=== PATIENT | female | born 1960 | race Caucasian/White ===

== ENCOUNTER 2016-09-25 12:45 | Emergency (ER) | payer MEDICARE, OTHER ==
--- NOTE | 2016-09-25 13:28 | ED ---
General Adult HPI - General Chief complaint: Urogenital Stated complaint: Female Source: patient, RN notes reviewed Mode of arrival: ambulatory Limitations: no limitations - History of Present Illness Initial comments: Chief complaint and history of present illness this is a 56-year-old female complaint of frequency urgency and dysuria for the past 24 hours. Patient reports she does a few drops of blood with her urine she has to go urgently occasionally only a few drops come out. Suprapubic discomfort. No chills no fever no flank pain. No complaints of any nausea. The patient has had history of UTIs in the past. - Related Data Home Medications Medication Instructions Recorded Confirmed Alendronate Sodium [Alendronate 70 mg PO Q7DAYS 01/01/16 09/25/16 Sodium] Atomoxetine HCl [Strattera] 80 mg PO DAILY 01/01/16 09/25/16 FLUoxetine HCL [FLUoxetine HCL] 40 mg PO DAILY 01/01/16 09/25/16 Lisinopril [Lisinopril] 5 mg PO DAILY 01/01/16 09/25/16 [place] Carbonate [[place] 150 mg PO BID 01/01/16 09/25/16 Carbonate] Meloxicam [Meloxicam] 15 mg PO DAILY 01/01/16 09/25/16 Mirtazapine [Mirtazapine] 15 mg PO HS 01/01/16 09/25/16 Previous Rx's Medication Instructions Recorded Hydrocodone/Acetaminophen [[place] 1 each PO Q6HR PRN #5 tab 01/01/16 5-325] Phenazopyridine [Pyridium] 200 mg PO TID #6 tablet 09/25/16 Phenazopyridine [Pyridium] 200 mg PO TID #6 tablet 09/25/16 Sulfamethox-Tmp 800-160Mg [Bactrim 1 each PO Q12HR #20 tab 09/25/16 DS 800-160 mg] Allergies Allergy/AdvReac Type Severity Reaction Status Date / Time No Known Allergies Allergy Verified 09/25/16 12:51 Review of Systems ROS Statement: Those systems with pertinent positive or pertinent negative responses have been documented in the HPI. Review of systems no complaint of headache or sore throat no chest pain or shortness of breath no intestinal problems problems include frequency urgency and dysuria. No neuro deficits complained of. All systems are reviewed. Past medical problems significant for angina, hyperlipidemia, hypertension, osteoarthritis, migraines, emphysema. The patient's surgeries include appendectomy, , tonsillectomy and tubal ligation. The patient' s a smoker strongly encouraged to stop denies alcohol use. ROS Other: All systems not noted in ROS Statement are negative. Past Medical History Past Medical History: Chest Pain / Angina, Hyperlipidemia, Hypertension, Osteoarthritis (OA) Additional Past Medical History / Comment(s): migraines, emphysema, chronic bronchitis History of Any Multi-Drug Resistant Organisms: None Reported Past Surgical History: Appendectomy, Section, Tonsillectomy, Tubal Ligation Past Anesthesia/Blood Transfusion Reactions: No Reported Reaction Past Psychological History: Anxiety, Bipolar, Depression Smoking Status: Current every day smoker Past Alcohol Use History: None Reported Past Drug Use History: None Reported - Past Family History Father Family Medical History: Cancer General Exam - General Exam Comments Initial Comments: General: The patient is awake and alert, in no distress, and does not appear acutely ill. Complaining of frequency urgency and dysuria Eye: Pupils are equal, round and reactive to light, extra-ocular movements are intact ; there is normal conjunctiva bilaterally. No signs of icterus. Ears, nose, mouth and throat: There are moist mucous membranes and no oral lesions. Neck: The neck is supple, there is no tenderness , no anterior cervical lymphadenopathy. Cardiovascular: There is a regular rate and rhythm. No murmur, rub or gallop is appreciated. Respiratory: Lungs are clear to auscultation, respirations are non-labored, breath sounds are equal. No wheezes, stridor, rales, or rhonchi. Gastrointestinal: Complains of suprapubic discomfort with urinating but not with palpation. No organomegaly. Back: There is no tenderness to palpation in the midline. There is no obvious deformity. No rashes noted. Musculoskeletal: Normal ROM, no tenderness, There is no pedal edema. There is no calf tenderness or swelling. Sensation intact. Pulses equal bilaterally 2+. Neurological: No gross neuro deficits Skin: Patient has multiple lesions where she is picked and scratch. She states it caused by mosquito bites last week while camping. Limitations: no limitations Course Vital Signs 09/25/16 12:48 Temperature 98.5 F Pulse Rate 99 Respiratory 18 Rate Blood Pressure 173/78 O2 Sat by Pulse 98 Oximetry Medical Decision Making - Lab Data Lab Results 09/25/16 Range/Units 13:36 Urine Color Light Yellow Urine Appearance Cloudy H (Clear) Urine pH 5.5 (5.0-8.0) Ur Specific [place] 1.007 (1.001-1.035) Urine Protein Trace H (Negative) Urine Glucose (UA) Negative (Negative) Urine Ketones Negative (Negative) Urine Blood Large H (Negative) Urine Nitrite Positive H (Negative) Urine Bilirubin Negative (Negative) Urine Urobilinogen <2.0 (<2.0) mg/dL Ur Leukocyte Esterase Moderate H (Negative) Urine RBC 2 (0-5) /hpf Urine WBC 30 H (0-5) /hpf Ur Squamous Epith Cells <1 (0-4) /hpf Urine Bacteria Occasional H (None) /hpf Urine Mucus Rare H (None) /hpf Disposition Clinical Impression: Urinary tract infection Disposition: HOME SELF-CARE Condition: Fair Instructions: Urinary Tract Infection in Women (ED) Prescriptions: Phenazopyridine [Pyridium] 200 mg PO TID #6 tablet Phenazopyridine [Pyridium] 200 mg PO TID #6 tablet Sulfamethox-Tmp 800-160Mg [Bactrim DS 800-160 mg] 1 each PO Q12HR #20 tab Referrals: Lucio Grimm DO [Primary Care Provider] - 1-2 days Time of Disposition: 14:55
[2016-09-25 13:50] LABS: Appearance,Urine Cloudy (Clear); Bacteria,Urine Occasional /hpf; Bilirubin,Urine Negative (Negative); Glucose,Urine (UA) Negative (Negative); Ketones,Urine Negative (Negative); Leukocyte Esterase,Urine Moderate (Negative); Mucus,Urine Rare /hpf; Nitrite,Urine Positive (Negative); PH, Urine 5.5 (5.0-8.0); Particle Count 4294; Protein,Urine Trace (Negative); RBC,Urine 2 /hpf (0-5); Specific Gravity,Urine 1.007 (1.001-1.035); Squamous Epithelial Cell,Urine <1 /hpf (0-4); UA Billing (MACRO vs. MICRO) MICRO; Urobilinogen,Urine <2.0 mg/dL (<2.0); WBC,Urine 30 /hpf (0-5)
[2016-09-25] MEDS ORDERED: SULFAMETH-TMP DS STARTER PACK 2 TAB BTL PO STA (14:52)
[2016-09-25] MEDS ORDERED: PHENAZOPYRIDINE 200 MG TAB PO STA (14:52)
[2016-09-25 15:08] VITALS: BP 140/68; PULSE 83; RESP 20; TEMP 97
== END 2016-09-25 15:07 | disposition home or self-care (01) ==
LOC: EC 12:45
DX: N39.0 Urinary tract infection, site not specified (principal); R10.9 Unspecified abdominal pain; M19.90 Unspecified osteoarthritis, unspecified site; E78.5 Hyperlipidemia, unspecified; I10 Essential (primary) hypertension; F31.9 Bipolar disorder, unspecified; F41.9 Anxiety disorder, unspecified; F17.200 Nicotine dependence, unspecified, uncomplicated; Z79.1 Long term (current) use of non-steroidal anti-inflammatories (NSAID); Z79.899 Other long term (current) drug therapy; Z98.890 Other specified postprocedural states; Z98.51 Tubal ligation status
CPT/HCPCS: 81001; 87077; 87086; 87186; 99283

== ENCOUNTER 2016-10-15 12:35 | Emergency (ER) | payer MEDICARE, OTHER ==
[2016-10-15 13:01] VITALS: RESP 16
[2016-10-15 13:33] LABS: Appearance,Urine Clear (Clear); Bilirubin,Urine Negative (Negative); Glucose,Urine (UA) Negative (Negative); Ketones,Urine Negative (Negative); Leukocyte Esterase,Urine Negative (Negative); Nitrite,Urine Negative (Negative); PH, Urine 6.5 (5.0-8.0); Protein,Urine Negative (Negative); Specific Gravity,Urine 1.013 (1.001-1.035); UA Billing (MACRO vs. MICRO) CHEM; Urobilinogen,Urine <2.0 mg/dL (<2.0)
--- NOTE | 2016-10-15 14:11 | ED ---
General Adult HPI - General Chief complaint: Back Pain/Injury Stated complaint: Back Pain Time Seen by Provider: 10/15/16 13:07 Source: patient, RN notes reviewed Mode of arrival: ambulatory Limitations: no limitations - History of Present Illness Initial comments: 56-year-old female who presents emergency room today with chief complaint of increased lower back pain. She does admit that it's worse when she coughs or certain movements. Does admit when she is walking that she feels pain in her lower back. Denies any radiation. Denies any lumbar radiculopathy. Denies any saddle anesthesia. Denies any injury or trauma. Patient denies any recent fever, chills, shortness of breath, chest pain, abdominal pain, nausea or vomiting, numbness or tingling, dysuria or hematuria, constipation or diarrhea, headaches or visual changes, or any other complaints. - Related Data Home Medications Medication Instructions Recorded Confirmed Alendronate Sodium [Alendronate 70 mg PO Q7DAYS 01/01/16 10/15/16 Sodium] Atomoxetine HCl [Strattera] 80 mg PO DAILY 01/01/16 10/15/16 Lisinopril [Lisinopril] 5 mg PO DAILY 01/01/16 10/15/16 [place] Carbonate [[place] 150 mg PO QAM 01/01/16 10/15/16 Carbonate] Meloxicam [Meloxicam] 15 mg PO DAILY 01/01/16 10/15/16 Mirtazapine [Mirtazapine] 15 mg PO HS 01/01/16 10/15/16 Albuterol Sulfate [Proair Hfa] 1 - 2 puff INHALATION RT-Q6H PRN 10/15/16 Calcium Carbonate/Vitamin D3 1 tab PO DAILY 10/15/16 10/15/16 [Calcium 500-Vit D3 600 Tablet] Cholecalciferol [Vitamin D3] 1,000 unit PO DAILY 10/15/16 10/15/16 FLUoxetine HCL [PROzac] 20 mg PO DAILY 10/15/16 10/15/16 [place] Carbonate 300 mg PO HS 10/15/16 10/15/16 Tiotropium 18 Mcg/Puff [Spiriva] 1 cap INHALATION RT-DAILY 10/15/16 10/15/16 Previous Rx's Medication Instructions Recorded Ibuprofen [Motrin] 600 mg PO Q6HR PRN #20 day 10/15/16 Allergies Allergy/AdvReac Type Severity Reaction Status Date / Time No Known Allergies Allergy Verified 10/15/16 13:55 Review of Systems ROS Statement: Those systems with pertinent positive or pertinent negative responses have been documented in the HPI. ROS Other: All systems not noted in ROS Statement are negative. Past Medical History Past Medical History: Chest Pain / Angina, Hyperlipidemia, Hypertension, Osteoarthritis (OA) Additional Past Medical History / Comment(s): migraines, emphysema, chronic bronchitis History of Any Multi-Drug Resistant Organisms: None Reported Past Surgical History: Appendectomy, Section, Tonsillectomy, Tubal Ligation Past Anesthesia/Blood Transfusion Reactions: No Reported Reaction Past Psychological History: Anxiety, Bipolar, Depression Smoking Status: Current every day smoker Past Alcohol Use History: None Reported Past Drug Use History: None Reported - Past Family History Father Family Medical History: Cancer General Exam - General Exam Comments Initial Comments: General: The patient is awake and alert, in no distress, and does not appear acutely ill. Eye: Pupils are equal, round and reactive to light, extra-ocular movements are intact. No nystagmus. There is normal conjunctiva bilaterally. No signs of icterus. Ears, nose, mouth and throat: There are moist mucous membranes and no oral lesions. Neck: The neck is supple, there is no tenderness or JVD. Cardiovascular: There is a regular rate and rhythm. No murmur, rub or gallop is appreciated. Respiratory: Lungs are clear to auscultation, respirations are non-labored, breath sounds are equal. No wheezes, stridor, rales, or rhonchi. Gastrointestinal: Soft, non-distended, non-tender abdomen without masses or organomegaly noted. There is no rebound or guarding present. No CVA tenderness. Bowel sounds are unremarkable. Musculoskeletal: Normal ROM. Patient has normal appearance of thoracic and lumbar spine. No step-offs forms appreciated. No tenderness midline. Paravertebral tenderness on the right on palpation. Strength 5/5. Sensation intact. Pulses equal bilaterally 2+. Neurological: A&O x 3. CN II-XII intact, There are no obvious motor or sensory deficits. Coordination appears grossly intact. Speech is normal. Skin: Skin is warm and dry and no rashes or lesions are noted. Psychiatric: Cooperative, appropriate mood & affect, normal judgment. Limitations: no limitations Course Vital Signs 10/15/16 10/15/16 12:49 12:56 Temperature 97.1 F L Pulse Rate 95 93 Respiratory 18 16 Rate Blood Pressure 164/72 140/60 O2 Sat by Pulse 98 97 Oximetry Medical Decision Making - Medical Decision Making Patient pain is reproduced on palpation. She does admit that is worse with certain movements. Her urinalysis is negative for any sign of infection. Patient's vitals are stable here in the emergency room. At this time advised patient that symptoms are consistent with muscular skeletal pain. Denies trying to explain this to the patient she received a phone call and began to talk on the phone. Patient will be treated with ibuprofen advised follow-up the family doctor over the next 2 days return if any symptoms increase or worsen. - Lab Data Lab Results 10/15/16 Range/Units 12:35 Urine Color Yellow Urine Appearance Clear (Clear) Urine pH 6.5 (5.0-8.0) Ur Specific [place] 1.013 (1.001-1.035) Urine Protein Negative (Negative) Urine Glucose (UA) Negative (Negative) Urine Ketones Negative (Negative) Urine Blood Negative (Negative) Urine Nitrite Negative (Negative) Urine Bilirubin Negative (Negative) Urine Urobilinogen <2.0 (<2.0) mg/dL Ur Leukocyte Esterase Negative (Negative) Disposition Clinical Impression: Acute low back pain Disposition: HOME SELF-CARE Condition: Good Instructions: Acute Low Back Pain (ED) Additional Instructions: Please use medication as discussed. Please follow-up with family doctor in the next 2 days of symptoms have not improved. Please return to emergency room if the symptoms increase or worsen or for any other concerns. Prescriptions: Ibuprofen [Motrin] 600 mg PO Q6HR PRN #20 day PRN Reason: Pain Referrals: Lucio Grimm DO [Primary Care Provider] - 1-2 days Time of Disposition: 14:11
[2016-10-15 14:19] VITALS: BP 141/65; PULSE 68; TEMP 98
== END 2016-10-15 14:19 | disposition home or self-care (01) ==
LOC: EC 12:35
DX: M54.5 Low back pain (principal); I10 Essential (primary) hypertension; F31.9 Bipolar disorder, unspecified; J43.9 Emphysema, unspecified; F17.200 Nicotine dependence, unspecified, uncomplicated; Z79.1 Long term (current) use of non-steroidal anti-inflammatories (NSAID); Z79.899 Other long term (current) drug therapy
CPT/HCPCS: 81003; 87086; 99283

== ENCOUNTER → 2018-04-03 | Outpatient (CLI) | payer MEDICARE, OTHER ==
[2018-04-03 16:30] LABS: Basophils # (A) 0.1 k/uL (0-0.2); Basophils % (A) 1 %; Eosinophils # (A) 0.1 k/uL (0-0.7); Eosinophils % (A) 1 %; HCT 40.3 % (34.0-46.0); HGB 13.3 gm/dL (11.4-16.0); Lymphocytes # (A) 2.6 k/uL (1.0-4.8); Lymphocytes % (A) 29 %; MCH 31.7 pg (25.0-35.0); MCV 96.2 fL (80.0-100.0); Mean Platelet Volume 8.2; Monocytes # (A) 0.4 k/uL (0-1.0); Monocytes % (A) 5 %; Neutrophils # (A) 5.6 k/uL (1.3-7.7); Neutrophils % (A) 62 %; Platelet Count 314 k/uL (150-450); RBC 4.19 m/uL (3.80-5.40); RDW 13.4 % (11.5-15.5)
[2018-04-04 03:52] LABS: Lithium <0.1 mmol/L (1.0-1.2)
== END | disposition home or self-care (01) ==
LOC: LABWHC1 14:52
PROVIDERS: ATTEND Nurse Practitioner Family
DX: Z51.81 Encounter for therapeutic drug level monitoring (principal); Z79.899 Other long term (current) drug therapy
CPT/HCPCS: 36415; 80178; 82565; 84439; 84443; 84520; 85025

== ENCOUNTER → 2018-06-13 | Outpatient (CLI) | payer MEDICARE, OTHER ==
--- NOTE | 2018-06-13 08:51 | BD ---
EXAMINATION TYPE: Axial Bone Density DATE OF EXAM: 06/13/2018 COMPARISON: DEXA bone scan 2015 CLINICAL HISTORY: Postmenopausal female Height: 4 FT 7 1/2 IN Weight: 113 FRAX RISK QUESTIONS: History of Fracture in Adulthood: YES Secondary Osteoporosis: 3. Menopause before 45: YES Current Tobacco Use: YES RISK FACTORS HISTORY OF: Active: YES Postmenopausal woman: AGE 35 Lost more than 2 inches in height since high school: YES MEDICATIONS: Prednisone or other steroids: WAS ON INHALER FOR ASTHMA HAS NOT TAKEN FOR LAST 6 MONTHS Osteoporosis Medications: YES Which medication: ALENDRONATE SODIUM How Lon MONTHS Additional Medications: ALENDRONATE SODIUM, ATORVASTATIN, BISACODYL, LISINOPRIL, MELOXICAM Additional History: EXAM MEASUREMENTS: Bone mineral densitometry was performed using the [employer] System. Bone mineral density as measured about the Lumbar spine is: ----- L1-L4(G/cm2): 0.986 T Score Values are as follows: ----- L2: -1.7 ----- L3: -1.5 ----- L4: -1.6 ----- L1-L4: -1.6 Bone mineral density has: INCREASED 7.0 % since study of: 2016 Bone mineral density about the R hip (g/cm2): 0.653 Bone mineral density about the L hip (g/cm2): 0.684 T Score values are as follows: -----R Neck: -2.8 -----L Neck: -2.5 -----R Total: -2.4 -----L Total: -1.6 Bone mineral density has: INCREASED 2.5 % since study of: 2016 IMPRESSION: Osteoporosis (T Score less than -2.5) remains present femoral neck level right hip. There remains increased fracture risk and therapy is usually indicated based on age. Re-Screen 1-2 years. NOTE: T-SCORE=SD OF THE YOUNG ADULT MEAN.
== END | disposition home or self-care (01) ==
LOC: RADBDWWP 07:59
PROVIDERS: ATTEND Family Medicine
DX: M81.0 Age-related osteoporosis without current pathological fracture (principal)
CPT/HCPCS: 77080

== ENCOUNTER 2018-06-14 10:55 | Day surgery (SDC) | payer MEDICARE, OTHER ==
[2018-06-12 11:22] VITALS: BMI 24.8
--- NOTE | 2018-06-14 09:53 | P.GSHP ---
History of Present Illness H&P Date: 06/14/18 CHIEF COMPLAINT: Colon screen HISTORY OF PRESENT ILLNESS: The patient is a 58-year-old female who presents for colon screen. Lower endoscopy was offered for further evaluation and management. PAST MEDICAL HISTORY: Please see list. PAST SURGICAL HISTORY: Please see list. MEDICATIONS: Please see list. ALLERGIES: Please see list. SOCIAL HISTORY: No illicit drug use FAMILY HISTORY: No reports of Crohn disease or ulcerative colitis. REVIEW OF ORGAN SYSTEMS: CONSTITUTIONAL: No reports of fevers or chills. PHYSICAL EXAM: VITAL SIGNS: Stable GENERAL: Well-developed pleasant in no acute distress. HEENT: No scleral icterus. Extraocular movements grossly intact. Moist buccal mucosa. NECK: Supple without lymphadenopathy. CHEST: Unlabored respirations. Equal bilateral excursions. CARDIOVASCULAR: Regular rate and rhythm. Distal 2+ pulses. ABDOMEN: Soft, nontender, nondistended. MUSCULOSKELETAL: No clubbing, cyanosis, or edema. ASSESSMENT: 1. Colon screen. PLAN: 1. Recommend proceeding with a lower endoscopy Past Medical History Past Medical History: Chest Pain / Angina, Hyperlipidemia, Hypertension, Memory Impairment, Osteoarthritis (OA) Additional Past Medical History / Comment(s): migraines, emphysema, chronic bronchitis, osteoporosis History of Any Multi-Drug Resistant Organisms: None Reported Past Surgical History: Appendectomy, Section, Tonsillectomy, Tubal Ligation Past Anesthesia/Blood Transfusion Reactions: No Reported Reaction Smoking Status: Current every day smoker - Past Family History Father Family Medical History: Cancer Medications and Allergies Home Medications Medication Instructions Recorded Confirmed Type Alendronate Sodium 70 mg PO MO 01/01/16 06/12/18 History Atomoxetine HCl [Strattera] 80 mg PO DAILY 01/01/16 06/12/18 History Lisinopril 5 mg PO DAILY 01/01/16 06/12/18 History [place] Carbonate 450 mg PO HS 01/01/16 06/12/18 History Meloxicam 15 mg PO DAILY 01/01/16 06/12/18 History Mirtazapine 15 mg PO HS 01/01/16 06/12/18 History Albuterol Sulfate [Proair Hfa] 1 - 2 puff INHALATION RT-Q6H PRN 10/15/16 History FLUoxetine HCL [PROzac] 20 mg PO DAILY 10/15/16 06/12/18 History Ibuprofen [Motrin] 600 mg PO Q6HR PRN #20 day 10/15/16 06/12/18 Rx Tiotropium 18 Mcg/Puff [Spiriva] 1 cap INHALATION RT-DAILY 10/15/16 06/12/18 History Atorvastatin [Lipitor] 20 mg PO DAILY 06/12/18 06/12/18 History Ergocalciferol [Vitamin D2 50,000 units PO Q30D 06/12/18 06/12/18 History (FERMIN)] Allergies Allergy/AdvReac Type Severity Reaction Status Date / Time No Known Allergies Allergy Verified 06/12/18 11:12
[~2018-06-14 10:55] MED LIST: LACTATED RINGERS 1,000 ML IV SCH; LIDOCAINE 1% 20 ML VIAL (10MG/ML) FOR IV START INTRADERMA PRN
[2018-06-14 11:39] VITALS: RESP 16; TEMP 98.6
[2018-06-14] MEDS ORDERED: LIDOCAINE 1% INJ 10MG/ML (20 ML MDV) ONE (12:29)
[2018-06-14] MEDS ORDERED: PROPOFOL 10 MG/ML 20 ML VIAL IV ONE (12:29)
--- NOTE | 2018-06-14 12:51 | P.PCN ---
Date of Procedure: 06/14/18 Description of Procedure: PREOPERATIVE DIAGNOSIS: Colonoscopy screening, first POSTOPERATIVE DIAGNOSIS: Colonoscopy screening, first Very poor colon prep OPERATION: Colonoscopy to the ileocecal valve and appendiceal orifice. SURGEON: Keke Don MD. ANESTHESIA: MAC. INDICATIONS: The patient is a 58-year-old female who presents for her first colonoscopy screening. Benefits and risks were described and informed consent was obtained. DESCRIPTION OF PROCEDURE: The patient had undergone Gatorade, MiraLAX and Dulcolax prep. She had been brought into the operating room and laid in the left lateral decubitus position. After adequate intravenous sedation, the rectum was examined with 2% lidocaine jelly. No external hemorrhoids were encountered. The rectal tone was within normal limits. No lesions were palpated in the rectal vault. An Olympus colonoscope was advanced until the ileocecal valve and appendiceal orifice were clearly viewed. The prep was very poor limiting complete views of the mucosal taylor. No scattered diverticulosis was encountered. No colonic polyps were found. No evidence of focal colitis was found. Retroflexion of the scope demonstrated no internal hemorrhoids. The colon was desufflated. The patient had tolerated the procedure well. Withdrawal time was over 6 minutes. FINDINGS: Very poor colonic prep No internal hemorrhoids No external prolapsed hemorrhoids. No arteriovenous malformations. No adenomatous polyps. No focal colitis. RECOMMENDATIONS: Lower endoscopy in 5 years, 2023 for increased familial risk Plan - Discharge Summary Discharge Rx Participant: No New Discharge Prescriptions: No Action Alendronate Sodium 70 mg PO MO [place] Carbonate 450 mg PO HS Lisinopril 5 mg PO DAILY Atomoxetine HCl [Strattera] 80 mg PO DAILY Mirtazapine 15 mg PO HS Meloxicam 15 mg PO DAILY Tiotropium 18 Mcg/Puff [Spiriva] 1 cap INHALATION RT-DAILY Albuterol Sulfate [Proair Hfa] 1 - 2 puff INHALATION RT-Q6H PRN PRN Reason: Shortness Of Breath FLUoxetine HCL [PROzac] 20 mg PO DAILY Ibuprofen [Motrin] 600 mg PO Q6HR PRN #20 day PRN Reason: Pain Atorvastatin [Lipitor] 20 mg PO DAILY Ergocalciferol [Vitamin D2 (DRISDOL)] 50,000 units PO Q30D Discharge Medication List Alendronate Sodium 70 mg PO MO 01/01/16 [History] Atomoxetine HCl [Strattera] 80 mg PO DAILY 01/01/16 [History] Lisinopril 5 mg PO DAILY 01/01/16 [History] [place] Carbonate 450 mg PO HS 01/01/16 [History] Meloxicam 15 mg PO DAILY 01/01/16 [History] Mirtazapine 15 mg PO HS 01/01/16 [History] Albuterol Sulfate [Proair Hfa] 1 - 2 puff INHALATION RT-Q6H PRN 10/15/16 [ History] FLUoxetine HCL [PROzac] 20 mg PO DAILY 10/15/16 [History] Ibuprofen [Motrin] 600 mg PO Q6HR PRN #20 day 10/15/16 [Rx] Tiotropium 18 Mcg/Puff [Spiriva] 1 cap INHALATION RT-DAILY 10/15/16 [History] Atorvastatin [Lipitor] 20 mg PO DAILY 06/12/18 [History] Ergocalciferol [Vitamin D2 (DRISDOL)] 50,000 units PO Q30D 06/12/18 [History] Follow up Appointment(s)/Referral(s): Keke Don MD [STAFF PHYSICIAN] - 1 Week Patient Instructions/Handouts: Colonoscopy (DC) Activity/Diet/Wound Care/Special Instructions: Repeat colonoscopy in 5 years, 2023 Discharge Disposition: HOME SELF-CARE
[2018-06-14 13:14] VITALS: BP 129/75; PULSE 70
== END 2018-06-14 13:29 | disposition home or self-care (01) ==
LOC: ORWHC2ENDO 10:55
PROVIDERS: ATTEND Surgery Plastic and Reconstructive Surgery
DX: Z12.11 Encounter for screening for malignant neoplasm of colon (principal); I10 Essential (primary) hypertension; E78.5 Hyperlipidemia, unspecified; M81.0 Age-related osteoporosis without current pathological fracture; R41.3 Other amnesia; I20.9 Angina pectoris, unspecified; G43.909 Migraine, unspecified, not intractable, without status migrainosus; J42 Unspecified chronic bronchitis; J43.9 Emphysema, unspecified; F17.210 Nicotine dependence, cigarettes, uncomplicated; F32.9 Major depressive disorder, single episode, unspecified; Z79.899 Other long term (current) drug therapy
CPT/HCPCS: J2001; J2704; G0121; 45378

== ENCOUNTER → 2018-07-03 | Outpatient (CLI) | payer MEDICARE, OTHER ==
--- NOTE | 2018-07-05 09:11 | MM ---
Reason for exam: screening (asymptomatic). Last mammogram was performed 4 years ago. History: Patient is postmenopausal. Physical Findings: A clinical breast exam by your physician is recommended on an annual basis and results should be correlated with mammographic findings. MG 3D Screening Mammo W/Cad Bilateral CC, MLO, and XCCL view(s) were taken. Prior study comparison: July 03, 2014, bilateral MG screening mammo w CAD. The breast tissue is heterogeneously dense. This may lower the sensitivity of mammography. No significant changes when compared with prior studies. ASSESSMENT: Negative, BI-RAD 1 RECOMMENDATION: Routine screening mammogram of both breasts in 1 year.
== END | disposition home or self-care (01) ==
LOC: RADMAMWWP 12:30
PROVIDERS: ATTEND Family Medicine
DX: Z12.31 Encounter for screening mammogram for malignant neoplasm of breast (principal)
CPT/HCPCS: 77063; 77067

== ENCOUNTER → 2019-02-12 | Outpatient (CLI) | payer MEDICARE, OTHER ==
[2019-02-12 10:51] LABS: Basophils # (A) 0.1 k/uL (0-0.2); Basophils % (A) 1 %; Eosinophils # (A) 0.1 k/uL (0-0.7); Eosinophils % (A) 1 %; HCT 44.2 % (34.0-46.0); Lymphocytes # (A) 2.4 k/uL (1.0-4.8); Lymphocytes % (A) 29 %; MCHC 31.7 g/dL (31.0-37.0); MCV 98.1 fL (80.0-100.0); Monocytes # (A) 0.3 k/uL (0-1.0); Monocytes % (A) 4 %; Neutrophils # (A) 5.4 k/uL (1.3-7.7); Neutrophils % (A) 63 %; Platelet Count 308 k/uL (150-450); RBC 4.51 m/uL (3.80-5.40); RDW 12.9 % (11.5-15.5); WBC 8.5 k/uL (3.8-10.6)
[2019-02-12 17:55] LABS: ALT 24 U/L (8-44); AST 25 U/L (13-35); African American GFR (CKD) 93.5 (60.0-200.0); Alkaline Phosphatase 42 U/L (41-126); Bilirubin, Conjugated <0.20 mg/dL (0.20-0.40); Carbon Dioxide 26.9 mmol/L (21.6-31.8); Chloride 103 mmol/L (96-109); Chol/HDL Ratio 6.47; Cholesterol 304 mg/dL (0-200); Glucose 112 mg/dL (70-110); LDL Cholesterol,Calculated 149.4 mg/dL (0.0-131.0); Lithium 0.5 mmol/L (0.5-1.2); Potassium 5.1 mmol/L (3.5-5.5); Sodium 136 mmol/L (135-145); Total Bilirubin 0.5 mg/dL (0.3-1.2)
[2019-02-12 20:05] LABS: Hemoglobin A1C 5.9 % (4.0-6.0)
== END ==
LOC: LABWHC1 09:46
PROVIDERS: ATTEND Nurse Practitioner Family
DX: Z51.81 Encounter for therapeutic drug level monitoring (principal); Z79.899 Other long term (current) drug therapy
CPT/HCPCS: 36415; 80051; 80061; 80076; 80178; 82565; 82947; 83036; 84439; 84443; 84520; 85025

== ENCOUNTER → 2019-06-14 | Outpatient (CLI) | payer MEDICARE, OTHER ==
--- NOTE | 2019-06-14 12:19 | ECHOF ---
Referral Reason:R07.9 chest pain, unspecified MEASUREMENTS -------- HEIGHT: 134.6 cm WEIGHT: 49.9 kg BP: RVIDd: 2.6 cm (< 3.3) IVSd: 1.3 cm (0.6 - 1.1) LVIDd: 3.4 cm (3.9 - 5.3) LVPWd: 1.3 cm (0.6 - 1.1) IVSs: 1.5 cm LVIDs: 2.3 cm LVPWs: 1.4 cm LAESV Index (A-L): 26.80 ml/m Ao Diam: 2.9 cm (2.0 - 3.7) AV Cusp: 1.8 cm (1.5 - 2.6) MV EXCURSION: 17.568 mm (> 18.000) MV EF SLOPE: 99 mm/s (70 - 150) EPSS: 0.5 cm MV E Evan: 0.68 m/s MV DecT: 165 ms MV A Evan: 0.81 m/s MV E/A Ratio: 0.83 RAP: 5.00 mmHg RVSP: 33.63 mmHg FINDINGS -------- Sinus rhythm. This was a technically adequate study. The left ventricular size is normal. There is mild concentric left ventricular hypertrophy. Overa ll left ventricular systolic function is normal with, an EF between 55 - 60 %. The diastolic fillin g pattern is normal for the age of the patient 11.19. The right ventricle is normal in size. Normal LA size by volume 22+/-6 ml/m2. The right atrial size is normal. Interatrial and interventricular septum intact. There is no evidence of aortic regurgitation. There is no evidence of aortic stenosis. No mitral regurgitation. Mild tricuspid regurgitation present. There is borderline pulmonary artery hypertension. The righ t ventricular systolic pressure, as measured by Doppler, is 33.63mmHg. There is no pulmonic regurgitation present. The aortic root size is normal. Normal inferior vena cava with normal inspiratory collapse consistent with estimated right atrial pre ssure of 5 mmHg. There is no pericardial effusion. CONCLUSIONS -------- 1. Sinus rhythm. 2. This was a technically adequate study. 3. The left ventricular size is normal. 4. There is mild concentric left ventricular hypertrophy. 5. Overall left ventricular systolic function is normal with, an EF between 55 - 60 %. 6. The diastolic filling pattern is normal for the age of the patient 11.19 7. The right ventricle is normal in size. 8. Normal LA size by volume 22+/-6 ml/m2. 9. The right atrial size is normal. 10. Interatrial and interventricular septum intact. 11. There is no evidence of aortic regurgitation. 12. There is no evidence of aortic stenosis. 13. No mitral regurgitation. 14. Mild tricuspid regurgitation present. 15. There is borderline pulmonary artery hypertension. 16. The right ventricular systolic pressure, as measured by Doppler, is 33.63mmHg. 17. There is no pulmonic regurgitation present. 18. The aortic root size is normal. 19. Normal inferior vena cava with normal inspiratory collapse consistent with estimated right atrial pressure of 5 mmHg. 20. There is no pericardial effusion. COLOR RECEIVER: Alysa Ayala RDCS
--- NOTE | 2019-06-14 12:45 | EST ---
EXERCISE STRESS DATE OF SERVICE: 06/14/2019 AGE: 59 SEX: Female HT: 56 WT: 110 PROTOCOL: Vic STAGE: II DURATION OF EXERCISE: 4 minutes 15 seconds HEART RATE REST: 87 BLOOD PRESSURE REST: 140/82 MAXIMUM HEART RATE ACHIEVED: 117 MAXIMUM BLOOD PRESSURE: 185/66 85% MPHR: 137 100% MPHR: 161 METS: 6.0 INDICATIONS: Chest pain. CLINICAL INFORMATION: Baseline EKG revealed normal sinus rhythm without significant ST-T changes. Patient walked on a standard Vic protocol for a total duration of 4 minutes 15 seconds achieved a maximal heart rate of only 117 beats per minute. She developed fatigue and shortness of breath. She did not achieve 85% of her predicted maximal heart rate. There was a lot of artifact. There was no significant arrhythmia. Patient did not have angina. By EKG criteria, this is an inconclusive stress test with limited exercise capacity. At the above-mentioned heart rate of 117 beats per minute, there were no ischemic changes, but this remains an inconclusive stress test. MMODL / IJN: [id number] /
== END | disposition home or self-care (01) ==
LOC: RADNMMAIN 08:14
PROVIDERS: ATTEND Family Medicine
DX: I07.1 Rheumatic tricuspid insufficiency (principal); I27.21 Secondary pulmonary arterial hypertension; R07.9 Chest pain, unspecified
CPT/HCPCS: 93017; 93306

== ENCOUNTER → 2019-12-24 | Outpatient (CLI) | payer MEDICARE, OTHER ==
[2019-12-25 18:53] LABS: African American GFR (CKD) 47.5 (60.0-200.0); Anion Gap 8.7 mmol/L (4.00-12.00); BUN/Creat Ratio 20.71 Ratio (12.00-20.00); Calcium 9.8 mg/dL (8.7-10.3); Carbon Dioxide 23.3 mmol/L (21.6-31.8); Magnesium 2.4 mg/dL (1.5-2.4); Potassium 4.9 mmol/L (3.5-5.5)
== END | disposition home or self-care (01) ==
LOC: LABWHC1 11:59
PROVIDERS: ATTEND Nurse Practitioner
DX: I10 Essential (primary) hypertension (principal)
CPT/HCPCS: 36415; 80048; 83735

== ENCOUNTER → 2020-06-10 | Outpatient (CLI) | payer MEDICARE, OTHER ==
--- NOTE | 2020-06-11 10:47 | P.ARTDOP ---
Arterial Doppler LOWER EXTREMITY ARTERIAL DOPPLER: DATE OF SERVICE: 06/10/2020 Reason for study: Right calf pain. Doppler waveforms: Multiphasic bilaterally throughout. Pulse volume recording: []. Pressure gradients: Below the knee bilaterally. Ankle-brachial indices: 0.65 on the right and 0.86 on the left Toe brachial indices: [] on the right, [] on the left Impression: Suspect fairly mild distal disease.
== END | disposition home or self-care (01) ==
LOC: RADUSWWP 11:43
PROVIDERS: ATTEND Family Medicine
DX: I73.9 Peripheral vascular disease, unspecified (principal)
CPT/HCPCS: 93923

== ENCOUNTER → 2020-10-14 | Outpatient (CLI) | payer MEDICARE, OTHER ==
--- NOTE | 2020-10-15 09:48 | P.ARTDOP ---
Arterial Doppler LOWER EXTREMITY ARTERIAL DOPPLER: DATE OF SERVICE: 10/14/2020 Reason for study: Right calf claudication. Doppler waveforms: Multiphasic throughout on the left. Multiphasic at the right femoral and popliteal. Atypical below. Pulse volume recording: []. Pressure gradients: Above the low thigh on the right. Distally on the left.. Ankle-brachial indices: 0.67 on the right and greater than 1 on the left. 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 Cannot exclude some iliac component. The left side is normal except for some decreased toe waveform and pressure. This is most likely vasospastic in nature. Distal disease less likely..
== END | disposition home or self-care (01) ==
LOC: RADUSWWP 13:29
PROVIDERS: ATTEND Family Medicine
DX: I73.9 Peripheral vascular disease, unspecified (principal)
CPT/HCPCS: 93923

== ENCOUNTER 2020-12-10 17:19 | Emergency (ER) | payer MEDICARE, OTHER ==
[2020-12-10 17:24] VITALS: RESP 16
[2020-12-10] MEDS ORDERED: oxyCODONE-APAP 10-325MG 1 EACH TAB PO STA (17:52)
--- NOTE | 2020-12-10 18:00 | ED ---
General Adult HPI - General Chief complaint: Back Pain/Injury Stated complaint: lower back pain Time Seen by Provider: 12/10/20 17:29 Source: patient Mode of arrival: ambulatory Limitations: no limitations - History of Present Illness Initial comments: Dictation was produced using [employer] dictation software. please excuse any grammatical, word or spelling errors. Chief Complaint: 60-year-old female presents with back pain History of Present Illness: Patient is a 60-year-old female presents to the emergency department for several days of lower back pain. Yesterday patient was seen at [facility] were x-ray and labs were performed. She was discharged with tramadol pills. She states that those medicines are not working. Patient was told that she has kidney disease and her kidney markers are increasing. Patient is a poor surgery. Son is at the bedside. Patient is wondering why [facility] gave her medicines that did not help her symptoms. Localizes the pain to the lower lumbar area. States that her gums are worse when she moves. Denies any symptoms of saddle anesthesia, numbness and paresthesias to the lower extremity is, no fevers. No trouble urinating or stooling. The ROS documented in this emergency department record has been reviewed and confirmed by me. Those systems with pertinent positive or negative responses have been documented in the HPI. All other systems are other negative and/or noncontributory. PHYSICAL EXAM: General Impression: Alert and oriented x3, not in acute distress HEENT: Normocephalic atraumatic, extra-ocular movements intact, pupils equal and reactive to light bilaterally, mucous membranes moist. Cardiovascular: Heart regular rate and rhythm Chest: Able to complete full sentences, no retractions, no tachypnea Abdomen: abdomen soft, non-tender, non-distended, no organomegaly Musculoskeletal: Pulses present and equal in all extremities, no peripheral edema Motor: no focal deficits noted Neurological: CN II-XII grossly intact, no focal motor or sensory deficits noted, ambulatoryo with no complications Skin: Intact with no visualized rashes Psych: Normal affect and mood ED course: 6-year-old female presents emergency department for back pain. Physical examination is benign.Laboratory evaluation obtained. No acute processes. X-ray shows spondylosis. Patient resting comfortable at bedside. Patient be discharged. Close follow-up with primary care doctor. - Related Data Home Medications Medication Instructions Recorded Confirmed Alendronate Sodium 70 mg PO MO 01/01/16 12/10/20 Atomoxetine HCl [Strattera] 80 mg PO DAILY 01/01/16 12/10/20 Meloxicam 15 mg PO DAILY 01/01/16 12/10/20 Mirtazapine 15 mg PO HS 01/01/16 12/10/20 Albuterol Sulfate [Proair Hfa] 2 puff INHALATION RT-Q6H PRN 10/15/16 12/10/20 FLUoxetine HCL [PROzac] 20 mg PO DAILY 10/15/16 12/10/20 Atorvastatin [Lipitor] 80 mg PO DAILY 12/10/20 12/10/20 Cilostazol [Pletal] 100 mg PO BID 12/10/20 12/10/20 [place] Carbonate 300 mg PO HS 12/10/20 12/10/20 Metoprolol Tartrate [Lopressor] 25 mg PO DAILY 12/10/20 12/10/20 lisinopriL 10 mg PO DAILY 12/10/20 12/10/20 traMADol HCL 50 mg PO TID PRN 12/10/20 12/10/20 Previous Rx's Medication Instructions Recorded HYDROcodone/APAP 5-325MG [[place] 1 tab PO Q6HR PRN 3 Days #12 tab 12/10/20 5-325] Allergies Allergy/AdvReac Type Severity Reaction Status Date / Time No Known Allergies Allergy Verified 12/10/20 18:46 Review of Systems ROS Statement: Those systems with pertinent positive or pertinent negative responses have been documented in the HPI. ROS Other: All systems not noted in ROS Statement are negative. Past Medical History Past Medical History: Chest Pain / Angina, Hyperlipidemia, Hypertension, Osteoarthritis (OA) Additional Past Medical History / Comment(s): migraines, emphysema, chronic bronchitis History of Any Multi-Drug Resistant Organisms: None Reported Past Surgical History: Appendectomy, Section, Tonsillectomy, Tubal Ligation Past Anesthesia/Blood Transfusion Reactions: No Reported Reaction Past Psychological History: Anxiety, Bipolar, Depression Past Drug Use History: None Reported - Past Family History Father Family Medical History: Cancer General Exam Limitations: no limitations Course Vital Signs 12/10/20 17:21 Temperature 98 F Pulse Rate 50 L Respiratory 16 Rate Blood Pressure 156/82 O2 Sat by Pulse 96 Oximetry Medical Decision Making - Lab Data Result diagrams: 12/10/20 18:03 Lab Results 12/10/20 12/10/20 Range/Units 18:03 18:29 Sodium 137 (137-145) mmol/L Potassium 4.4 (3.5-5.1) mmol/L Chloride 102 (98-107) mmol/L Carbon Dioxide 27 (22-30) mmol/L Anion Gap 8 mmol/L BUN 13 (7-17) mg/dL Creatinine 0.94 (0.52-1.04) mg/dL Est GFR (CKD-EPI)AfAm 76 (>60 ml/min/1.73 sqM) Est GFR (CKD-EPI)NonAf 66 (>60 ml/min/1.73 sqM) Glucose 119 H (74-99) mg/dL Calcium 9.8 (8.4-10.2) mg/dL Urine Color Yellow Urine Appearance Turbid H (Clear) Urine pH 6.0 (5.0-8.0) Ur Specific [place] 1.019 (1.001-1.035) Urine Protein Trace H (Negative) Urine Glucose (UA) Negative (Negative) Urine Ketones Negative (Negative) Urine Blood Negative (Negative) Urine Nitrite Negative (Negative) Urine Bilirubin Negative (Negative) Urine Urobilinogen 2.0 (<2.0) mg/dL Ur Leukocyte Esterase Negative (Negative) Urine RBC 1 (0-5) /hpf Urine WBC 4 (0-5) /hpf Ur Squamous Epith Cells 54 H (0-4) /hpf Urine Bacteria Occasional H (None) /hpf Urine Mucus Rare H (None) /hpf Disposition Clinical Impression: Back pain Disposition: HOME SELF-CARE Condition: Good Instructions (If sedation given, give patient instructions): Acute Low Back Pain (ED) Prescriptions: HYDROcodone/APAP 5-325MG [[place] 5-325] 1 tab PO Q6HR PRN 3 Days #12 tab PRN Reason: Severe Pain Is patient prescribed a controlled substance at d/c from ED?: Yes If prescribed controlled substance>3 days was MAPS reviewed?: Prescribed <3 Days Referrals: Lucio Grimm DO [Primary Care Provider] - 1-2 days
[2020-12-10 18:38] LABS: Appearance,Urine Turbid (Clear); Bacteria,Urine Occasional /hpf; Bilirubin,Urine Negative (Negative); Blood,Urine Negative (Negative); Color,Urine Yellow; Glucose,Urine (UA) Negative (Negative); Ketones,Urine Negative (Negative); Leukocyte Esterase,Urine Negative (Negative); Mucus,Urine Rare /hpf; Nitrite,Urine Negative (Negative); Protein,Urine Trace (Negative); RBC,Urine 1 /hpf (0-5); Specific Gravity,Urine 1.019 (1.001-1.035); Squamous Epithelial Cell,Urine 54 /hpf (0-4); WBC,Urine 4 /hpf (0-5)
[2020-12-10 18:38] LABS: Calcium 9.8 mg/dL (8.4-10.2); Potassium 4.4 mmol/L (3.5-5.1)
--- NOTE | 2020-12-10 19:38 | XR ---
Result: History: Low back pain. Comparison: None available. Technique: 3 views of the lumbar spine. Findings: The bone mineralization is normal. Images of the lumbar spine demonstrate 5 lumbar-type vertebrae. There is no acute fracture or sublux ation. The vertebral body heights are preserved throughout the imaged lumbar spine. The vertebral e lements are in anatomic alignment. There is multilevel mild disc height narrowing with anterior endp late osteophytes and mild to moderate facet degenerative changes most notable at L5-S1. Colonic gaseo us distention seen. Impression: Mild to moderate lumbar spondylosis without acute osseous abnormality.
[2020-12-10 20:22] VITALS: BP 148/81; PULSE 57; TEMP 98.1
== END 2020-12-10 19:58 | disposition home or self-care (01) ==
LOC: EC 17:19
DX: M54.5 Low back pain (principal); I10 Essential (primary) hypertension; E78.5 Hyperlipidemia, unspecified; M19.90 Unspecified osteoarthritis, unspecified site; J43.9 Emphysema, unspecified; F31.9 Bipolar disorder, unspecified; F41.9 Anxiety disorder, unspecified; Z79.1 Long term (current) use of non-steroidal anti-inflammatories (NSAID); Z79.899 Other long term (current) drug therapy
CPT/HCPCS: 36415; 72100; 80048; 81001; 99283

== ENCOUNTER → 2022-02-17 | Outpatient (CLI) | payer MEDICARE, OTHER ==
--- NOTE | 2022-02-17 15:44 | MM ---
Reason for Exam: Additional evaluation requested from abnormal screening. Last screening mammogram was performed less than 1 month ago. Patient History: Menarche at age 12. First Full-Term at age 22. Right ovary removed at age 16. Postmenopausal. Risk Values: [place] 5 year model risk: 1.4%. NCI Lifetime model risk: 6.2%. Prior Study Comparison: 07/03/2014 Bilateral Screening Mammogram, [facility]. 07/03/2018 Bilateral Screening Mammogram, [facility]. 02/08/2022 Bilateral MG 3D screening mammo w/cad, [facility]. Tissue Density: Left: The breast tissue is heterogeneously dense. This may lower the sensitivity of mammography. Findings: Analyzed By CAD. Asymmetric densities within the MLO view middle depth on previous exam does not persist with compression. No worrisome calcifications. Overall Assessment: Benign, BI-RAD 2 Management: Screening Mammogram of both breasts in 1 year. A clinical breast exam by your physician is recommended on an annual basis and results should be correlated with mammographic findings. This exam should not preclude additional follow-up of suspicious palpable abnormalities. Results were given to the patient verbally at the time of exam. Electronically signed and approved by: Jabier Meadows D.O.
--- NOTE | 2022-02-17 15:44 | MM ---
Reason for Exam: Additional evaluation requested from abnormal screening. Last screening mammogram was performed less than 1 month ago. Patient History: Menarche at age 12. First Full-Term at age 22. Right ovary removed at age 16. Postmenopausal. Risk Values: [place] 5 year model risk: 1.4%. NCI Lifetime model risk: 6.2%. Prior Study Comparison: 07/03/2014 Bilateral Screening Mammogram, [facility]. 07/03/2018 Bilateral Screening Mammogram, [facility]. 02/08/2022 Bilateral MG 3D screening mammo w/cad, [facility]. Tissue Density: Left: The breast tissue is heterogeneously dense. This may lower the sensitivity of mammography. Findings: Analyzed By CAD. Asymmetric densities within the MLO view middle depth on previous exam does not persist with compression. No worrisome calcifications. Overall Assessment: Benign, BI-RAD 2 Management: Screening Mammogram of both breasts in 1 year. A clinical breast exam by your physician is recommended on an annual basis and results should be correlated with mammographic findings. This exam should not preclude additional follow-up of suspicious palpable abnormalities. Results were given to the patient verbally at the time of exam. Electronically signed and approved by: Jabier Meadows D.O.
== END | disposition home or self-care (01) ==
LOC: RADMAMWWP 14:34
PROVIDERS: ATTEND Family Medicine
DX: R92.8 Other abnormal and inconclusive findings on diagnostic imaging of breast (principal); Z78.0 Asymptomatic menopausal state
CPT/HCPCS: 77065; G0279; 77061

== ENCOUNTER 2022-11-12 09:52 | Inpatient (IN) | payer MEDICARE, MEDICAID ==
--- NOTE | 2022-11-12 10:18 | ED ---
General Adult HPI - General Chief complaint: Psychiatric Symptoms Stated complaint: mental health Time Seen by Provider: 11/12/22 09:55 Source: patient, RN notes reviewed, old records reviewed Mode of arrival: ambulatory Limitations: no limitations - History of Present Illness Initial comments: 62-year-old female presenting for mental health evaluation. Patient states that she is dealing with some ongoing issues with her son being depressed and suicidal and that she witnessed her son attempting suicide earlier today. She is brought in by her extractor machine operator from [facility]. The patient currently denies any suicidal or homicidal ideation. She's had recent medication changing including discontinuing lithium and starting Zyprexa approxi mately 3 weeks ago however the patient states she has not been taking the Zyprexa. - Related Data Home Medications Medication Instructions Recorded Confirmed Alendronate Sodium 70 mg PO MO 01/01/16 11/12/22 Atomoxetine HCl [Strattera] 80 mg PO DAILY 01/01/16 11/12/22 Mirtazapine 15 mg PO HS 01/01/16 11/12/22 Albuterol Sulfate [Proair Hfa] 2 puff INHALATION RT-Q6H PRN 10/15/16 11/12/22 FLUoxetine HCL [PROzac] 20 mg PO DAILY 10/15/16 11/12/22 Atorvastatin [Lipitor] 80 mg PO HS 12/10/20 11/12/22 Metoprolol Tartrate [Lopressor] 25 mg PO DAILY 12/10/20 11/12/22 cilostazoL [Pletal] 100 mg PO BID 12/10/20 11/12/22 lisinopriL [Prinivil] 10 mg PO DAILY 12/10/20 11/12/22 Calcium Carbonate/Vitamin D3 1 tab PO TID 11/12/22 11/12/22 [Calcium 600-Vit D3 10 mcg (400 Iu)] NIFEdipine XL [Procardia Xl] 30 mg PO DAILY 11/12/22 11/12/22 OLANZapine [ZyPREXA] 5 mg PO HS 11/12/22 11/12/22 sitaGLIPtin [Januvia] 100 mg PO DAILY 11/12/22 11/12/22 Allergies Allergy/AdvReac Type Severity Reaction Status Date / Time No Known Allergies Allergy Verified 11/12/22 10:52 Review of Systems ROS Statement: Those systems with pertinent positive or pertinent negative responses have been documented in the HPI. ROS Other: All systems not noted in ROS Statement are negative. Past Medical History Past Medical History: Chest Pain / Angina, Hyperlipidemia, Hypertension, Osteoarthritis (OA) Additional Past Medical History / Comment(s): migraines, emphysema, chronic bronchitis History of Any Multi-Drug Resistant Organisms: None Reported Past Surgical History: Appendectomy, Section, Tonsillectomy, Tubal Ligation Past Anesthesia/Blood Transfusion Reactions: No Reported Reaction Past Psychological History: Anxiety, Bipolar, Depression Smoking Status: Current every day smoker Past Alcohol Use History: Occasional Past Drug Use History: None Reported - Past Family History Father Family Medical History: Cancer General Exam Limitations: no limitations General appearance: anxious Head exam: Present: atraumatic, normocephalic Eye exam: Present: normal appearance, PERRL ENT exam: Present: normal exam Neck exam: Present: normal inspection. Absent: tenderness, meningismus Respiratory exam: Present: normal lung sounds bilaterally. Absent: respiratory distress Cardiovascular Exam: Present: regular rate, normal rhythm GI/Abdominal exam: Absent: distended Extremities exam: Present: normal inspection Neurological exam: Present: alert, oriented X3, CN II-XII intact. Absent: motor sensory deficit Psychiatric exam: Present: anxious, manic. Absent: suicidal ideation Skin exam: Present: warm, dry, intact Course Vital Signs 11/12/22 09:56 Temperature 98.3 F Pulse Rate 99 Respiratory 20 Rate Blood Pressure 162/68 O2 Sat by Pulse 99 Oximetry Medical Decision Making - Medical Decision Making Was pt. sent in by a medical professional or institution (, PA, PUBLIC HEALTH REGISTRAR, urgent care, hospital, or long term...) When possible be specific @ -No Did you speak to anyone other than the patient for history (EMS, parent, family, police, friend...)? What history was obtained from this source @[facility] extractor machine operator Did you review nursing and triage notes (agree or disagree)? Why? @ -I reviewed and agree with nursing and triage notes Were old charts reviewed (outside hosp., previous admission, EMS record, old EKG, old radiological studies, urgent care reports/EKG's, long term records)? Report findings @ -No old charts were reviewed Differential Diagnosis (chest pain, altered mental status, abdominal pain women, abdominal pain men, vaginal bleeding, weakness, fever, dyspnea, syncope, headache, dizziness, GI bleed, back pain, seizure, CVA, palpatations, mental health, musculoskeletal)? @ -Differential Mental Health Depression, anxiety, bipolar, psychosis, schizophrenia, borderline personality, situational depression, adjustment disorder, behavioral disorder, brain tumor, malingering, substance abuse, encephalopathy, medication reaction, dementia, hypothyroidism, degenerative neurologic disorder, lupus.... This is not meant to be all-inclusive list EKG interpreted by me (3pts min.). @ -As above X-rays interpreted by me (1pt min.). @ -None done CT interpreted by me (1pt min.). @ -None done U/S interpreted by me (1pt. min.). @ -None done What testing was considered but not performed or refused? (CT, X-rays, U/S, labs)? Why? @ -None What meds were considered but not given or refused? Why? @ -None Did you discuss the management of the patient with other professionals (professionals i.e. , PA, PUBLIC HEALTH REGISTRAR, lab, RT, psych nurse, social media assistant, convertible top installer, teacher, ict help desk officer, case worker)? Give summary @ -EPS nurse Was smoking cessation discussed for >3mins.? @ -No Was critical care preformed (if so, how long)? @ -No Were there social determinants of health that impacted care today? How? (Homelessness, low income, unemployed, alcoholism, drug addiction, transportation, low edu. Level, literacy, decrease access to med. care, snf, rehab)? @ -No Was there de-escalation of care discussed even if they declined (Discuss DNR or withdrawal of care, Hospice)? DNR status @ -No What co-morbidities impacted this encounter? (DM, HTN, Smoking, COPD, CAD, Cancer, CVA, ARF, Chemo, Hep., AIDS, mental health diagnosis, sleep apnea, morbid obesity)? @Depression Was patient admitted / discharged? Hospital course, mention meds given and route, prescriptions, significant lab abnormalities, going to OR and other pertinent info. @ -Patient evaluated by EPS after she was medically cleared and is felt to require inpatient psychiatric evaluation and treatment. She will be admitted to this institution. Undiagnosed new problem with uncertain prognosis? @ -No Drug Therapy requiring intensive monitoring for toxicity (Heparin, Nitro, Insulin, Cardizem)? @ -No Were any procedures done? @ -No Diagnosis/symptom? @ -Depression, anxiety Acute, or Chronic, or Acute on Chronic? @ -Acute Uncomplicated (without systemic symptoms) or Complicated (systemic symptoms)? @ -default Side effects of treatment? @ -No Exacerbation, Progression, or Severe Exacerbation? @ -No Poses a threat to life or bodily function? How? (Chest pain, [place], [place], pneumonia, PE, COPD, DKA, ARF, appy, cholecystitis, CVA, Diverticulitis, Homicidal, Suicidal, threat to staff... and all critical care pts) @Yes, self-harm - Lab Data Lab Results 11/12/22 Range/Units 10:58 Coronavirus (PCR) Not Detected (Not Detectd) Disposition Clinical Impression: Depression, Acute anxiety Disposition: ADMITTED IP TO THIS HOSP Condition: Stable Is patient prescribed a controlled substance at d/c from ED?: No Referrals: Lucio Grimm DO [Primary Care Provider] - 1-2 days Time of Disposition: 12:09
[2022-11-12] MEDS ORDERED: NICOTINE 21MG/24HR PATCH TRANSDERM STA (11:54)
[2022-11-12 12:23] LABS: Appearance,Urine Clear (Clear); Bacteria,Urine Many /hpf; Bilirubin,Urine Negative (Negative); Blood,Urine Negative (Negative); Color,Urine Yellow; Glucose,Urine (UA) Negative (Negative); Ketones,Urine Negative (Negative); Leukocyte Esterase,Urine Negative (Negative); Mucus,Urine Rare /hpf; Nitrite,Urine Positive (Negative); Protein,Urine Negative (Negative); RBC,Urine 1 /hpf (0-5); Specific Gravity,Urine 1.012 (1.001-1.035); Squamous Epithelial Cell,Urine 2 /hpf (0-4); Urobilinogen,Urine <2.0 mg/dL (<2.0); WBC,Urine 2 /hpf (0-5)
[2022-11-12 12:39] LABS: HCT 36.4 % (34.0-46.0); HGB 12.3 gm/dL (11.4-16.0); MCHC 33.8 g/dL (31.0-37.0); MCV 94.6 fL (80.0-100.0); Mean Platelet Volume 10.4; Platelet Count 258 k/uL (150-450); RBC 3.85 m/uL (3.80-5.40); RDW 12.7 % (11.5-15.5); WBC 10.1 k/uL (3.8-10.6)
[2022-11-12 12:52] LABS: ALT 30 U/L (4-34); AST 41 U/L (14-36); African American GFR (CKD) 73 (>60 ml/min/1.73 sqM); Albumin 4.4 g/dL (3.5-5.0); Alkaline Phosphatase 41 U/L (38-126); Anion Gap 9 mmol/L; Blood Urea Nitrogen 15 mg/dL (7-17); Calcium 10.3 mg/dL (8.4-10.2); Carbon Dioxide 28 mmol/L (22-30); Chloride 103 mmol/L (98-107); Glucose 117 mg/dL (74-99); Non-African American GFR(CKD) 64 (>60 ml/min/1.73 sqM); Potassium 4.6 mmol/L (3.5-5.1); Sodium 140 mmol/L (137-145); Total Bilirubin 0.5 mg/dL (0.2-1.3); Total Protein 7.1 g/dL (6.3-8.2)
[2022-11-12] MEDS ORDERED: MAGNESIUM HYDROXIDE 2,400 MG/30 ML CUP PO PRN (14:42)
[2022-11-12] MEDS ORDERED: MAG HYDROX/AL HYDROX/SIMETH 30 ML CUP PO PRN (14:42)
[2022-11-12] MEDS ORDERED: LORazepam 1 MG TAB PO PRN (14:42)
[2022-11-12] MEDS ORDERED: HALOPERIDOL LACTATE 5 MG/ML 1 ML VIAL IM PRN (14:42)
[2022-11-12] MEDS ORDERED: ALBUTEROL INHALER 60 PUFF/8 GM INHALER (MHU) INHALATION PRN (14:49)
[2022-11-12] MEDS ORDERED: LORazepam 2 MG/ML INJ IM PRN (14:51)
[2022-11-12] MEDS ORDERED: haloperidoL 5 MG TAB PO PRN (15:01)
[2022-11-12] MEDS: ACETAMINOPHEN TAB 325 MG TAB PO PRN (16:12)
[2022-11-12 17:40] LABS: Glucose,Whole Blood 189 mg/dL (70-110)
[2022-11-12] MEDS: CALCIUM CARB-VIT D 500 MG-5 MCG TAB PO SCH ×3 (18:44→21:25)
[2022-11-12 20:31] LABS: Glucose,Whole Blood 94 mg/dL (70-110)
[2022-11-12] MEDS ORDERED: OLANZapine 5 MG TAB PO SCH (21:00)
[2022-11-12] MEDS: cilostazoL 100 MG TAB PO SCH ×2 (21:18→21:25)
[2022-11-12] MEDS: ATORVASTATIN 80 MG TAB PO SCH ×2 (21:18→21:57)
[2022-11-13 08:05] LABS: Glucose,Whole Blood 108 mg/dL (70-110)
[2022-11-13] MEDS: LINAGLIPTIN 5 MG TABLET PO SCH (08:19)
[2022-11-13] MEDS: CALCIUM CARB-VIT D 500 MG-5 MCG TAB PO SCH ×3 (08:19→19:41)
[2022-11-13] MEDS: NIFEdipine XL 30 MG TAB.ER.24 PO SCH (08:19)
[2022-11-13] MEDS: lisinopriL 10 MG TAB PO SCH (08:19)
[2022-11-13] MEDS: cilostazoL 100 MG TAB PO SCH ×2 (08:19→19:41)
[2022-11-13] MEDS: METOPROLOL TARTRATE 25 MG TAB PO SCH (08:20)
[2022-11-13] MEDS: NON FORMULARY DRUG (Atomoxetine Hcl [Strattera] 80 MG Capsule) PO SCH (08:21)
[2022-11-13] MEDS ORDERED: FLUoxetine HCL 20 MG CAP PO SCH (09:00)
--- NOTE | 2022-11-13 12:44 | P.HP ---
Psychiatric H&P - . H&P Date: 11/13/22 History & Physical: Allergies Allergy/AdvReac Type Severity Reaction Status Date / Time No Known Allergies Allergy Verified 11/12/22 10:52 Vital Signs Temp 97.3 F L 11/13/22 07:15 Pulse 81 11/13/22 08:24 Resp 18 11/13/22 07:15 BP 112/63 11/13/22 08:24 Pulse Ox 95 11/13/22 07:15 FiO2 Intake & Output 11/12/22 11/13/22 11/13/22 18:59 06:59 18:59 Weight 43.4 kg Laboratory Last Values WBC 10.1 k/uL (3.8-10.6) 11/12/22 12:25 RBC 3.85 m/uL (3.80-5.40) 11/12/22 12:25 Hgb 12.3 gm/dL (11.4-16.0) 11/12/22 12:25 Hct 36.4 % (34.0-46.0) 11/12/22 12:25 MCV 94.6 fL (80.0-100.0) 11/12/22 12:25 MCH 32.0 pg (25.0-35.0) 11/12/22 12:25 MCHC 33.8 g/dL (31.0-37.0) 11/12/22 12:25 RDW 12.7 % (11.5-15.5) 11/12/22 12:25 Plt Count 258 k/uL (150-450) 11/12/22 12:25 MPV 10.4 11/12/22 12:25 Sodium 140 mmol/L (137-145) 11/12/22 12:25 Potassium 4.6 mmol/L (3.5-5.1) 11/12/22 12:25 Chloride 103 mmol/L (98-107) 11/12/22 12:25 Carbon Dioxide 28 mmol/L (22-30) 11/12/22 12:25 Anion Gap 9 mmol/L 11/12/22 12:25 BUN 15 mg/dL (7-17) 11/12/22 12:25 Creatinine 0.96 mg/dL (0.52-1.04) 11/12/22 12:25 Est GFR (CKD-EPI)AfAm 73 (>60 ml/min/1.73 sqM) 11/12/22 12:25 Est GFR (CKD-EPI)NonAf 64 (>60 ml/min/1.73 sqM) 11/12/22 12:25 Glucose 117 mg/dL (74-99) H 11/12/22 12:25 POC Glucose (mg/dL) 108 mg/dL (70-110) 11/13/22 08:02 POC Glu Director Supply Chain ID Manny Senior 11/13/22 08:[address] Glu mg/dL 128 mg/dL 11/12/22 12:25 Hemoglobin A1c 6.1 % (<=6.0) H 11/12/22 12:25 Calcium 10.3 mg/dL (8.4-10.2) H 11/12/22 12:25 Total Bilirubin 0.5 mg/dL (0.2-1.3) 11/12/22 12:25 AST 41 U/L (14-36) H 11/12/22 12:25 ALT 30 U/L (4-34) 11/12/22 12:25 Alkaline Phosphatase 41 U/L (38-126) 11/12/22 12:25 Troponin I <0.012 ng/mL (0.000-0.034) 11/12/22 12:25 Total Protein 7.1 g/dL (6.3-8.2) 11/12/22 12:25 Albumin 4.4 g/dL (3.5-5.0) 11/12/22 12:25 TSH 0.270 mIU/L (0.465-4.680) L 11/13/22 06:42 Urine Color Yellow 11/12/22 11:20 Urine Appearance Clear (Clear) 11/12/22 11:20 Urine pH 7.0 (5.0-8.0) 11/12/22 11:20 Ur Specific Brumley 1.012 (1.001-1.035) 11/12/22 11:20 Urine Protein Negative (Negative) 11/12/22 11:20 Urine Glucose (UA) Negative (Negative) 11/12/22 11:20 Urine Ketones Negative (Negative) 11/12/22 11:20 Urine Blood Negative (Negative) 11/12/22 11:20 Urine Nitrite Positive (Negative) H 11/12/22 11:20 Urine Bilirubin Negative (Negative) 11/12/22 11:20 Urine Urobilinogen <2.0 mg/dL (<2.0) 11/12/22 11:20 Ur Leukocyte Esterase Negative (Negative) 11/12/22 11:20 Urine RBC 1 /hpf (0-5) 11/12/22 11:20 Urine WBC 2 /hpf (0-5) 11/12/22 11:20 Ur Squamous Epith Cells 2 /hpf (0-4) 11/12/22 11:20 Urine Bacteria Many /hpf (None) H 11/12/22 11:20 Urine Mucus Rare /hpf (None) H 11/12/22 11:20 Coronavirus (PCR) Not Detected (Not Detectd) 11/12/22 10:58 11/13/22 09:12 IDENTIFYING DATA: Patient is a , employed, 62-year-old female who is presenting with nasreen HPI: Patient presented to the ED accompanied by 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 It is reported the patient was discontinued off of lithium because of concern for potential kidney issues and started on Zyprexa on 10/26/22 but patient reports noncompliance with Zyprexa. Patient was admitted in an on a voluntary basis into the psychiatric unit. Patient is seen at [facility] by NELLY Sauer. Although there is no documented history suggestive of kidney failure, patient was quite concerned about this and therefore she was taken off of lithium on 10/26/22. She states that she has not been taking Zyprexa because she read about it and was concerned about the possibility of diabetic coma from Zyprexa. She states that she has been experiencing significant "mood swings" and depression recently. She describes in vivid detail discovering her son having attempted suicide 3 months ago. She says that this has been replaying in her mind and she is very worried about him. Patient has poor concentration and displays inflated self-esteem on presentation. She reports having slept 1 hour for the past 5 days and is irritable on approach. She says her mood has been "bad" and has been significantly worried about her son. She is quite tangential during the interview and discusses her concerns about her son's mental health in detail rather than answering questions about her own. However, patient is able to be verbally redirected after some time. She displays psychomotor agitation and stands up often during the interview to express herself loudly. Selina expresses paranoia at times that the medical system is failing her son and asks that this provider help her sons be placed on SSI, but it appears that this might be due to an innate misunderstanding of the medical system. On risk assessment, patient denies active suicidal ideation, intent or plan. However, because of her concerns over her son's health, patient endorses passive suicidal ideation. Patient denies homicidal ideation. She denies auditory and visual hallucinations, as asked and assessed. She denies access to guns or weapons. PSYCH HX: Patient is currently on Prozac 20 mg daily, Remeron 15 mg at bedtime, Strattera 80 mg daily, and Zyprexa 5 mg at bedtime. She reports compliance with all medications except Zyprexa. Previous psychiatrist: [facility] - Cristiane Grajeda NP Past tx: [place] - Patient reports kidney issues (although no objective proof of this based on records from [facility]) so this was discontinued Wellbutrin - "I'll be mean" Hospitalizations: At [facility] when she was 15 year old. NSSI: Denies SA: 16 years old - attempted to suffocate herself. PMH: Past Medical History: Chest Pain / Angina, Hyperlipidemia, Hypertension, Osteoarthritis (OA) Additional Past Medical History / Comment(s): migraines, emphysema, chronic bronchitis History of Any Multi-Drug Resistant Organisms: None Reported Past Surgical History: Appendectomy, Section, Tonsillectomy, Tubal Ligation ALLERGIES: NKDA SUBSTANCE HX: Alcohol: Denies Cocaine: Denies Tobacco: 0.5 ppd Cannabis: 4 joints daily Denies using other substances SOCIAL/LEGAL HX: She says her parents have both and reports having been close to them. She was once but after 2 months. She has 3 sons and says that her oldest son has not been doing well. She lives with her oldest son. She says she received social security income. Highest level of education: Completed 9th grade Vocation: She reports working at [employer] 3 days a week. Legal problems: Denies FAM PSYCH HX: Denies except son with alcohol use Suicide attempts: Son MENTAL STATUS EXAM: General Appearance: Patient appears to be stated age is alert, somewhat redirectable, and uncooperative initially but became cooperative. Patient appears to have poor hygiene and grooming. Behavior: Psychomotor agitation with wide fast hand gestures, standing up and nearly jumping at times Speech: Patient's speech is hyperverbal but not pressured Mood/Affect: Patient reports their mood is "bad", affect is irritable Suicidality/Homicidality: Patient denies having any homicidal ideation intent or plan. Denies any suicidal ideations intent or plan Perceptions: Patient denies any visual hallucinations and denies any auditory hallucinations Though content/process: There is no evidence of any delusional thought content and thought process is tangential Memory and concentration: AOX3, grossly intact for the purposes of this session. Reduced concentration to interview Judgment and insight: Poor STRENGTHS/WEAKNESSES: Strength is employment and follow-up with outpatient providers. Weakness is social stressors. INTELLECT: average IMPRESSIONS: Bipolar I disorder, currently manic, without psychotic features Cannabis use disorder Nicotine dependence R/o PTSD PLAN: -Patient is admitted under voluntary status to MHU for stabilization of psychiatric symptoms and safety. Patient signed adult voluntary form and medication consent and is placed in patient's chart. -Medications : Stop Zyprexa due to cardiometabolic concerns Start Abilify 10 mg daily for mood with plan for LAZO given noncompliance Consider Depakote tomorrow Start trazodone 50 mg daily for sleep Stop Prozac 20 mg daily and Remeron 15 mg (not improving sleep) due to nasreen Continue home Strattera 80 mg daily -NRT -Patient was counselled on substance abuse and desired to cut back on use. Motivational interviewing. -Patient was informed of the risks, benefits and side effects of the medication and patient verbally consented to taking the medications. Patient signed med consent form and was placed in chart. -Internal Medicine consult to perform medical evaluation and physical. -SW on board for discharge planning. Encourage patient to participate in groups to work on coping skills. 11/13/22 09:21 11/13/22 12:16
[2022-11-13] MEDS: NICOTINE 21MG/24HR PATCH TRANSDERM SCH (12:55)
[2022-11-13] MEDS: ARIPiprazole 10 MG TAB PO SCH (12:57)
[2022-11-13 13:00] LABS: Glucose,Whole Blood 78 mg/dL (70-110)
[2022-11-13 13:33] LABS: Chol/HDL Ratio 2.23 Ratio
--- NOTE | 2022-11-13 14:32 | P.MDCNMH ---
History of Present Illness H&P Date: 11/13/22 History of present illness; patient is 62-year-old lady with past medical histor y significant for hypertension, hyperlipidemia, diabetes mellitus, depression presented to the ER for psychiatric evaluation. Patient was brought in by her community mental health worker. Patient stated that she has been having worsening depression and has been ongoing social stressors at home. Patient witnessed her son committing suicide because of depression. Patient was started on Zyprexa in outpatient setting but admits not taking it for a few weeks. Patient denies any auditory or visual hallucinations. Denies any suicidal or homicidal thoughts. Initial lab work done in the ER showed WBC 10.1, hemoglobin 12.3, platelet count 258, sodium 140, potassium 4.6, BUN 15, creatinine 0.96 HbA1c 6.1 TSH 0.270 Patient was admitted to inpatient psych REVIEW OF SYSTEMS: CONSTITUTIONAL: No fever, no malaise, no fatigue. HEENT: No recent visual problems or hearing problems. Denied any sore throat. CARDIOVASCULAR: No chest pain, orthopnea, PND, no palpitations, no syncope. PULMONARY: No shortness of breath, no cough, no hemoptysis. GASTROINTESTINAL: No diarrhea, no nausea, no vomiting, no abdominal pain. NEUROLOGICAL: No headaches, no weakness, no numbness. HEMATOLOGICAL: Denies any bleeding or petechiae. GENITOURINARY: Denies any burning micturition, frequency, or urgency. MUSCULOSKELETAL/RHEUMATOLOGICAL: Denies any joint pain, swelling, or any muscle pain. ENDOCRINE: Denies any polyuria or polydipsia. The rest of the 14-point review of systems is negative. PHYSICAL EXAMINATION: GENERAL: The patient is alert and oriented x3, not in any acute distress. Well developed, well nourished. HEENT: Pupils are round and equally reacting to light. EOMI. No scleral icterus. No conjunctival pallor. Normocephalic, atraumatic. No pharyngeal erythema. No thyromegaly. CARDIOVASCULAR: S1 and S2 present. No murmurs, rubs, or gallops. PULMONARY: Chest is clear to auscultation, no wheezing or crackles. ABDOMEN: Soft, nontender, nondistended, normoactive bowel sounds. No palpable organomegaly. MUSCULOSKELETAL: No joint swelling or deformity. EXTREMITIES: No cyanosis, clubbing, or pedal edema. NEUROLOGICAL: Gross neurological examination did not reveal any focal deficits. SKIN: No rashes. Assessment and plan Worsening major depression Hypertension Hyperlipidemia Diabetes mellitus Monitor vital signs Continue Lipitor Continue lisinopril and Toprol Monitor blood sugar levels, Continue linaglitin Continue psych meds per psychiatry Labs and medication were reviewed.. Continue same treatment. Continue with symptomatic treatment. Resume home medication. Monitor labs and vitals. DVT and GI prophylaxis. Further recommendations as per clinical course of the patient Past Medical History Past Medical History: Chest Pain / Angina, COPD, Diabetes Mellitus, Hyperlipidemia, Hypertension, Osteoarthritis (OA) Additional Past Medical History / Comment(s): migraines, emphysema, chronic bronchitis History of Any Multi-Drug Resistant Organisms: None Reported Past Surgical History: Appendectomy, Section, Tonsillectomy, Tubal Ligation Past Anesthesia/Blood Transfusion Reactions: No Reported Reaction Past Psychological History: Anxiety, Bipolar, Depression Smoking Status: Current every day smoker Past Alcohol Use History: Occasional Additional Past Alcohol Use History / Comment(s): SMOKES < 1PPD- SINCE AGE 17 Past Drug Use History: Marijuana - Past Family History Father Family Medical History: Cancer Medications and Allergies Home Medications Medication Instructions Recorded Confirmed Type Alendronate Sodium 70 mg PO MO 01/01/16 11/12/22 History Atomoxetine HCl [Strattera] 80 mg PO DAILY 01/01/16 11/12/22 History Mirtazapine 15 mg PO HS 01/01/16 11/12/22 History Albuterol Sulfate [Proair Hfa] 2 puff INHALATION RT-Q6H PRN 10/15/16 11/12/22 History FLUoxetine HCL [PROzac] 20 mg PO DAILY 10/15/16 11/12/22 History Atorvastatin [Lipitor] 80 mg PO HS 12/10/20 11/12/22 History Metoprolol Tartrate [Lopressor] 25 mg PO DAILY 12/10/20 11/12/22 History cilostazoL [Pletal] 100 mg PO BID 12/10/20 11/12/22 History lisinopriL [Prinivil] 10 mg PO DAILY 12/10/20 11/12/22 History Calcium Carbonate/Vitamin D3 1 tab PO TID 11/12/22 11/12/22 History [Calcium 600-Vit D3 10 mcg (400 Iu)] NIFEdipine XL [Procardia Xl] 30 mg PO DAILY 11/12/22 11/12/22 History OLANZapine [ZyPREXA] 5 mg PO HS 11/12/22 11/12/22 History sitaGLIPtin [Januvia] 100 mg PO DAILY 11/12/22 11/12/22 History Allergies Allergy/AdvReac Type Severity Reaction Status Date / Time No Known Allergies Allergy Verified 11/12/22 10:52 Physical Exam Vitals: Vital Signs Temp Pulse Pulse Resp BP BP BP 11/13/22 08:24 81 112/63 11/13/22 07:15 97.3 F L 89 18 102/55 11/12/22 14:40 97.5 F L 89 18 122/58 11/12/22 13:28 81 15 115/58 Pulse Ox 11/13/22 08:24 11/13/22 07:15 95 11/12/22 14:40 96 11/12/22 13:28 95 Cranial Nerve Examination - Cranial Nerves Cranial Nerve II- Optic: Intact (Cranial nerves II-12 intact) Cranial Nerve III- Oculomotor: Intact Cranial Nerve IV- Trochlear: Intact Cranial Nerve V- Trigeminal: Intact Cranial Nerve - Abducens: Intact Cranial Nerve VII- Facial: Intact Cranial Nerve VIII- Auditory: Intact Cranial Nerve IX- Glossopharyngeal: Intact Cranial Nerve X- Vagus: Intact Cranial Nerve XI- Accessory: Intact Cranial Nerve XII- Hypoglossal: Intact Results CBC & Chem 7: 11/12/22 12:25 11/12/22 12:25 Labs: Abnormal Lab Results - Last 24 Hours (Table) 11/12/22 11/12/22 11/12/22 Range/Units 11:20 12:25 12:25 Glucose 117 H (74-99) mg/dL POC Glucose (mg/dL) (70-110) mg/dL Hemoglobin A1c 6.1 H (<=6.0) % Calcium 10.3 H (8.4-10.2) mg/dL AST 41 H (14-36) U/L TSH (0.465-4.680) mIU/L Urine Nitrite Positive H (Negative) Urine Bacteria Many H (None) /hpf Urine Mucus Rare H (None) /hpf 11/12/22 11/13/22 Range/Units 17:39 06:42 Glucose (74-99) mg/dL POC Glucose (mg/dL) 189 H (70-110) mg/dL Hemoglobin A1c (<=6.0) % Calcium (8.4-10.2) mg/dL AST (14-36) U/L TSH 0.270 L (0.465-4.680) mIU/L Urine Nitrite (Negative) Urine Bacteria (None) /hpf Urine Mucus (None) /hpf
[2022-11-13 16:12] VITALS: BMI 20.7
[2022-11-13 17:46] LABS: Glucose,Whole Blood 100 mg/dL (70-110)
[2022-11-13] MEDS: ATORVASTATIN 80 MG TAB PO SCH (19:41)
[2022-11-13 19:48] LABS: Glucose,Whole Blood 154 mg/dL (70-110)
[2022-11-14] MEDS: NON FORMULARY DRUG (Atomoxetine Hcl [Strattera] 80 MG Capsule) PO SCH (08:43)
[2022-11-14] MEDS ORDERED: LORazepam 1 MG TAB PO PRN (08:44)
[2022-11-14] MEDS ORDERED: HALOPERIDOL LACTATE 5 MG/ML 1 ML VIAL IM PRN (08:44)
[2022-11-14] MEDS ORDERED: haloperidoL 5 MG TAB PO PRN (08:44)
[2022-11-14] MEDS: cilostazoL 100 MG TAB PO SCH ×2 (08:44→20:44)
[2022-11-14] MEDS: ARIPiprazole 10 MG TAB PO SCH (08:44)
[2022-11-14] MEDS: NICOTINE 21MG/24HR PATCH TRANSDERM SCH (08:44)
[2022-11-14] MEDS: CALCIUM CARB-VIT D 500 MG-5 MCG TAB PO SCH ×3 (08:44→20:44)
[2022-11-14] MEDS: LINAGLIPTIN 5 MG TABLET PO SCH (08:45)
[2022-11-14] MEDS: METOPROLOL TARTRATE 25 MG TAB PO SCH (12:42)
[2022-11-14] MEDS: lisinopriL 10 MG TAB PO SCH (12:42)
[2022-11-14] MEDS: NIFEdipine XL 30 MG TAB.ER.24 PO SCH (12:42)
--- NOTE | 2022-11-14 13:13 | P.PN ---
Progress Note - Text Progress Note Date: 11/14/22 Interval History: Patient was seen bedside this morning. She states that she's been feeling "be tter" since being started on the Abilify including improvement in mood and sleep. However, patient's vital signs are notable for bradycardia that is currently asymptomatic. She denied all cardiac symptoms, including chest pain. She reports eating well and was less irritable today. She was also more goal directed while answering questions and expressed gratitude for her care. At this time patient denies any suicidal or homicidal ideations, intent or plan. Patient denies any auditory, visual hallucinations and denies any paranoia or delusions. Patient denies any side effects from the medications and has been compliant with meds. However, given the risk of bradycardia with Abilify, this will be discontinued. Mental Status Exam: General Appearance: Patient appears to be stated age is alert, more redirectable, and more cooperative. Patient appears to have poor hygiene and grooming. Behavior: No psychomotor agitation and calm Speech: Patient's speech is less hyperverbal and not pressured Mood/Affect: Patient reports their mood is "better", affect is congruent Suicidality/Homicidality: Patient denies having any homicidal ideation intent or plan. Denies any suicidal ideations intent or plan Perceptions: Patient denies any visual hallucinations and denies any auditory hallucinations Though content/process: There is no evidence of any delusional thought content and thought process is goal-oriented Memory and concentration: AOX3, grossly intact for the purposes of this session. Improving concentration to interview Judgment and insight: Poor Vital Signs Temp 97.8 F 11/14/22 06:37 Pulse 45 L 11/14/22 12:45 Resp 16 11/14/22 06:37 BP 142/66 11/14/22 12:45 Pulse Ox 95 11/13/22 07:15 FiO2 Intake & Output 11/13/22 11/14/22 11/14/22 18:59 06:59 18:59 Weight 43.4 kg Assessment Bipolar I disorder, currently manic, without psychotic features Intellectual disability, mild Cannabis use disorder Nicotine dependence R/o PTSD PLAN: -Patient is admitted under voluntary status to MHU for stabilization of psychiatric symptoms and safety. Patient signed adult voluntary form and medication consent and is placed in patient's chart. -Medications : Stop Zyprexa due to cardiometabolic concerns Stop Abilify 10 mg daily due to concern for asymptomatic bradycardia. Medical team notified and appreciate input. EKG was completed and indicates bigeminy. Antihypertensive meds were held today. Start Depakote 250 mg BID for mood stabilization Continue home Strattera 80 mg daily - unsure if this is necessary. -NRT -Patient was counselled on substance abuse and desired to cut back on use. Motivational interviewing. -Patient was informed of the risks, benefits and side effects of the medication and patient verbally consented to taking the medications. Patient signed med consent form and was placed in chart. -Internal Medicine on board -SW on board for discharge planning. Encourage patient to participate in groups to work on coping skills.
--- NOTE | 2022-11-14 14:21 | P.PN ---
Subjective Progress Note Date: 11/14/22 patient is 62-year-old lady with past medical history significant for hypertension, hyperlipidemia, diabetes mellitus, depression presented to the ER for psychiatric evaluation. Patient was brought in by her community mental health worker. Patient stated that she has been having worsening depression and has been ongoing social stressors at home. Patient witnessed her son committing suicide because of depression. Patient was started on Zyprexa in outpatient setting but admits not taking it for a few weeks. Patient denies any auditory or visual hallucinations. Denies any suicidal or homicidal thoughts. Initial lab work done in the ER showed WBC 10.1, hemoglobin 12.3, platelet count 258, sodium 140, potassium 4.6, BUN 15, creatinine 0.96 HbA1c 6.1 TSH 0.270 Patient was admitted to inpatient psych 11/14. Patient seen and examined. Patient was having low heart rate with heart rate ranging between the 240s. Patient currently not symptomatic. REVIEW OF SYSTEMS: CONSTITUTIONAL: No fever, no malaise,. CARDIOVASCULAR: No chest pain, no palpitations, no syncope. PULMONARY: No shortness of breath, no cough, GASTROINTESTINAL: No diarrhea, no nausea, no vomiting, no abdominal pain. NEUROLOGICAL: No headaches, no weakness, PHYSICAL EXAMINATION: GENERAL: The patient is alert and oriented x3, not in any acute distress. Well developed, well nourished. HEENT: Pupils are round and equally reacting to light. EOMI. No scleral icterus. No conjunctival pallor. Normocephalic, atraumatic. No pharyngeal erythema. No thyromegaly. CARDIOVASCULAR: S1 and S2 present. No murmurs, rubs, or gallops. PULMONARY: Chest is clear to auscultation, no wheezing or crackles. ABDOMEN: Soft, nontender, nondistended, normoactive bowel sounds. No palpable organomegaly. MUSCULOSKELETAL: No joint swelling or deformity. EXTREMITIES: No cyanosis, clubbing, or pedal edema. NEUROLOGICAL: Gross neurological examination did not reveal any focal deficits. SKIN: No rashes. Assessment and plan Worsening major depression Hypertension Hyperlipidemia Diabetes mellitus Monitor vital signs EKG reviewed. Consult cardiology Hold Procardia and Adina for now Labs and medication were reviewed.. Continue same treatment. Continue with symptomatic treatment. Resume home medication. Monitor labs and vitals. DVT and GI prophylaxis. Further recommendations as per clinical course of the patient Objective - Vital Signs Vital signs: Vital Signs Temp 97.8 F 11/14/22 06:37 Pulse 45 L 11/14/22 12:45 Resp 16 11/14/22 06:37 BP 142/66 11/14/22 12:45 Pulse Ox 95 11/13/22 07:15 FiO2 Intake & Output 11/13/22 11/14/22 11/14/22 18:59 06:59 18:59 Weight 43.4 kg - Labs CBC & Chem 7: 11/12/22 12:25 11/12/22 12:25 Labs: Abnormal Lab Results - Last 24 Hours (Table) 11/13/22 Range/Units 19:44 POC Glucose (mg/dL) 154 H (70-110) mg/dL
[2022-11-14] MEDS ORDERED: BENZOCAINE/MENTHOL LOZENG 1 EACH LOZENGE MUCOUS MEM PRN (16:32)
[2022-11-14 20:00] LABS: Glucose,Whole Blood 98 mg/dL (70-110)
[2022-11-14] MEDS: ATORVASTATIN 80 MG TAB PO SCH (20:46)
[2022-11-14] MEDS: DIVALPROEX 250 MG TABLET.DR PO SCH (20:46)
[2022-11-15] MEDS: ACETAMINOPHEN TAB 325 MG TAB PO PRN (03:25)
[2022-11-15] MEDS ORDERED: NON FORMULARY DRUG (Alendronate Sodium [Alendronate Sodium] 70 MG Tablet) PO SCH (06:30)
[2022-11-15] MEDS: NICOTINE 21MG/24HR PATCH TRANSDERM SCH (08:47)
[2022-11-15] MEDS: cilostazoL 100 MG TAB PO SCH ×2 (08:48→20:40)
[2022-11-15] MEDS: DIVALPROEX 250 MG TABLET.DR PO SCH ×2 (08:48→20:40)
[2022-11-15] MEDS: CALCIUM CARB-VIT D 500 MG-5 MCG TAB PO SCH ×3 (08:50→20:40)
[2022-11-15] MEDS: LINAGLIPTIN 5 MG TABLET PO SCH (08:50)
[2022-11-15] MEDS: NON FORMULARY DRUG (Atomoxetine Hcl [Strattera] 80 MG Capsule) PO SCH (09:11)
[2022-11-15] MEDS: METOPROLOL TARTRATE 25 MG TAB PO SCH ×2 (09:11→14:38)
[2022-11-15] MEDS: NIFEdipine XL 30 MG TAB.ER.24 PO SCH ×2 (09:11→14:38)
[2022-11-15] MEDS: lisinopriL 10 MG TAB PO SCH (09:13)
--- NOTE | 2022-11-15 12:00 | P.PN ---
Progress Note - Text Progress Note Date: 11/15/22 Interval History: Patient was seen this morning taking part in group, playing a board game with other patients in the activities room. Patient was directable and agreeable to speak to copy writer in the office. Patient was rambling today, had loose associations and was speaking about the multiple stressors in her life. She claims that her home life is "terrible" and was fairly vague about what is going on. She states that this is the main stressor in her life. Claims that she has poor distress tolerance and was finding it difficult to navigate her life and came to the hospital. She states that she is feeling anxious and worried about her medications. Claims that the doctor over the weekend changed a lot of her medications does not know why. Claims that she has a very difficult time sleeping, did not sleep much last night, has a fair appetite. Reports multiple interactions and problems with various options of medications. Claims that her mood is "alright" and is endorsing frustration and also anxiety. At this time patient denies any suicidal or homicidal ideations, intent or plan. Patient denies any auditory, visual hallucinations and denies any paranoia or delusions. Mental Status Exam: General Appearance: Patient appears to be short in stature, stated age is alert, more redirectable, and more cooperative. Patient appears to have improving hygiene and grooming. Behavior: Patient is appearing to be more cooperative, rambling, appears anxious. Speech: Patient's speech is less hyperverbal and not pressured, improving Mood/Affect: Patient reports their mood is "stressed", affect is congruent Suicidality/Homicidality: Patient denies having any homicidal ideation intent or plan. Denies any suicidal ideations intent or plan Perceptions: Patient denies any visual hallucinations and denies any auditory hallucinations Though content/process: There is no evidence of any delusional thought content and thought content. rambling, loose associations. focused on her meds and stressors. Memory and concentration: AOX3, grossly intact for the purposes of this session. Improving concentration to interview Judgment and insight: Poor, limited Assessment Bipolar I disorder, currently manic, without psychotic features Intellectual disability Cannabis use disorder Nicotine dependence PLAN: -Patient is admitted under voluntary status to [facility]HU for stabilization of psychiatric symptoms and safety. Patient signed adult voluntary form and medication consent and is placed in patient's chart. -Medications : continue Depakote 250 mg BID for mood stabilization start benadryl 25 mg qhs for insomnia, melatonin 10 mg qhs for sleep start abilify 5 mg daily for mood stabilization, monitor vitals Continue home Strattera 80 mg daily - unsure if this is necessary. -NRT - nicotine patch -SW on board for discharge planning. Encourage patient to participate in groups to work on coping skills. likely discharge in 1-2 days once patient is psychiatrically improved
[2022-11-15] MEDS: ARIPiprazole 5 MG TAB PO SCH (12:32)
[2022-11-15 12:41] LABS: Glucose,Whole Blood 122 mg/dL (70-110)
--- NOTE | 2022-11-15 14:12 | P.CRDCN ---
History of Present Illness History of present illness: HISTORY OF PRESENT ILLNESS: This is a 62-year-old female with a past medical history significant for hypertension, bipolar disorder, nicotine dependence, and cannabis use. Patient follows in the office with Dr. Benito. We have been asked to see the patient in consultation for bradycardia. Patient examined in the mental health unit. Patient currently denies chest pain or pressure. She currently denies shortness of breath. The patient does report she gets occasional chest pain on the left side of her chest. Patient also reports she occasionally feels palpitations. Patient was initially thought to be bradycardic and her metoprolol and Procardia were held. EKG was obtained revealing bigeminy. Patient's blood pressure currently stable. * EKG reveals sinus mechanism with bigeminy * Laboratory data: WBC 10.1. Hemoglobin 12.3. Platelet count 258. Sodium 140. Potassium 4.6. BUN 15. Creatinine 0.96. Troponin negative 2. * Current home cardiac medications include Lipitor 80 mg at night, Pletal 100 mg twice a day, lisinopril 10 mg daily, metoprolol tartrate 25 mg daily, Procardia XL 30 mg daily * Most recent echocardiogram obtained in May 2022 at the cardiology office revealed ejection fraction 50-55%, moderate mitral regurgitation which is hi ghly eccentric, mild tricuspid regurgitation, normal pulmonary artery systolic pressure * Patient underwent Lexiscan stress test in the office in August 2019 revealing small sized mid anterior wall fixed defect with normal contractility likely soft tissue attenuation. No evidence of stress-induced ischemia. REVIEW OF SYSTEMS: At the time of my exam: CONSTITUTIONAL: Denies fever or chills. HEENT: Denies blurred vision, vision changes, or eye pain. Denies hemoptysis CARDIOVASCULAR: Denies chest pain. Denies orthopnea. Denies PND. Denies palpitations RESPIRATORY: Denies shortness of breath. GASTROINTESTINAL: Denies abdominal pain. Denies nausea or vomiting. HEMATOLOGIC: Denies bleeding disorders. GENITOURINARY: Denies any blood in urine. SKIN: Denies pruitis. Denies rash. PHYSICAL EXAM: VITAL SIGNS: Reviewed. GENERAL: Well-developed in no acute distress. HEENT: Head is normocephalic. Pupils are equal, round. Sclerae anicteric. Mucous membranes of the mouth are moist. Neck supple. No JVD or thyromegaly LUNGS: Respirations even and unlabored. Lungs essentially clear to auscultation bilaterally. HEART: Regular rate and rhythm. S1 and S2 heard. ABDOMEN: Soft. Nondistended. Nontender. EXTREMITIES: Normal range of motion. No clubbing or cyanosis. Peripheral pulses intact. No lower extremity edema NEUROLOGIC: Awake and alert. Oriented x 3. ASSESSMENT: Bigeminy History of palpitations History of hypertension Bipolar disorder Marijuana use disorder Nicotine dependence PLAN: 2D echo obtained in the office reviewed. No need to repeat at this time. Patients heart rate appearing bradycardic inappropriately secondary to bigeminy Continue all of patient's cardiac medications including metoprolol. This was discussed with the patients nurse via phone. Further recommendations pending patient course Nurse practitioner note has been reviewed by physician. Signing provider agrees with the documented findings, assessment, and plan of care. Dr. Miner [email or web address] Patient was personally seen by me. The case was discussed in detail with the nurse practitioner who helped with the above documentation. I agree with this assessment and plan. Past Medical History Past Medical History: Chest Pain / Angina, COPD, Diabetes Mellitus, Hyperlipidemia, Hypertension, Osteoarthritis (OA) Additional Past Medical History / Comment(s): migraines, emphysema, chronic bronchitis History of Any Multi-Drug Resistant Organisms: None Reported Past Surgical History: Appendectomy, Section, Tonsillectomy, Tubal Ligation Past Anesthesia/Blood Transfusion Reactions: No Reported Reaction Past Psychological History: Anxiety, Bipolar, Depression Smoking Status: Current every day smoker Past Alcohol Use History: Occasional Additional Past Alcohol Use History / Comment(s): SMOKES < 1PPD- SINCE AGE 17 Past Drug Use History: Marijuana - Past Family History Father Family Medical History: Cancer Medications and Allergies Home Medications Medication Instructions Recorded Confirmed Type Alendronate Sodium 70 mg PO MO 01/01/16 11/12/22 History Atomoxetine HCl [Strattera] 80 mg PO DAILY 01/01/16 11/12/22 History Mirtazapine 15 mg PO HS 01/01/16 11/12/22 History Albuterol Sulfate [Proair Hfa] 2 puff INHALATION RT-Q6H PRN 10/15/16 11/12/22 History FLUoxetine HCL [PROzac] 20 mg PO DAILY 10/15/16 11/12/22 History Atorvastatin [Lipitor] 80 mg PO HS 12/10/20 11/12/22 History Metoprolol Tartrate [Lopressor] 25 mg PO DAILY 12/10/20 11/12/22 History cilostazoL [Pletal] 100 mg PO BID 12/10/20 11/12/22 History lisinopriL [Prinivil] 10 mg PO DAILY 12/10/20 11/12/22 History Calcium Carbonate/Vitamin D3 1 tab PO TID 11/12/22 11/12/22 History [Calcium 600-Vit D3 10 mcg (400 Iu)] NIFEdipine XL [Procardia Xl] 30 mg PO DAILY 11/12/22 11/12/22 History OLANZapine [ZyPREXA] 5 mg PO HS 11/12/22 11/12/22 History sitaGLIPtin [Januvia] 100 mg PO DAILY 11/12/22 11/12/22 History Allergies Allergy/AdvReac Type Severity Reaction Status Date / Time No Known Allergies Allergy Verified 11/12/22 10:52 Physical Exam Vitals: Vital Signs Temp Pulse Resp BP Pulse Ox 11/15/22 03:29 97.8 F 96 16 132/59 11/14/22 16:40 42 L 16 111/54 94 L 11/14/22 16:37 43 L 11/14/22 16:26 40 L Results 11/12/22 12:25 11/12/22 12:25 Current Medications Generic Name Dose Route Start Last Admin Trade Name Freq PRN Reason Stop Dose Admin Acetaminophen 650 mg 11/12/22 14:42 11/15/22 03:25 Acetaminophen Tab 325 Mg Tab PO 650 mg Q4HR PRN Administration Mild Pain (Scale 1 to 3) Al Hydroxide/Mg Hydroxide 30 ml 11/12/22 14:42 Mag Hydrox/Al Hydrox/Simeth 30 Ml Cup PO Q4HR PRN GI Upset Albuterol Sulfate 2 puff 11/12/22 14:49 Albuterol Inhaler 60 Puff/8 Gm Inhaler ([facility]hu) INHALATION RT-Q6H PRN Shortness Of Breath Aripiprazole 5 mg 11/15/22 12:00 11/15/22 12:32 Aripiprazole 5 Mg Tab PO 5 mg DAILY [facility]RE Administration Atorvastatin Calcium 80 mg 11/12/22 21:00 11/14/22 20:46 Atorvastatin 80 Mg Tab PO 80 mg HS [facility]ERRE Administration Benzocaine/Menthol 1 each 11/14/22 16:32 Benzocaine/Menthol Lozeng 1 Each Lozenge MUCOUS MEM Q6HR PRN Sore Throat Calcium Carbonate 1 each 11/12/22 16:00 11/15/22 08:50 Calcium Carb-Vit D 500 Mg-5 Mcg Tab PO 1 each TID [facility]ERRE Administration Cilostazol 100 mg 11/12/22 21:00 11/15/22 08:48 Cilostazol 100 Mg Tab PO 100 mg BID [facility] Administration Diphenhydramine HCl 25 mg 11/15/22 21:00 Diphenhydramine 25 Mg Cap PO [facility] Divalproex Sodium 250 mg 11/14/22 21:00 11/15/22 08:48 Divalproex 250 Mg Tablet.Dr PO 250 mg BID [facility] Administration Haloperidol 5 mg 11/14/22 08:44 Haloperidol 5 Mg Tab PO Q6HR PRN Agitation or Acute Anxiety Haloperidol Lactate 5 mg 11/14/22 08:44 Haloperidol Lactate 5 Mg/Ml 1 Ml Vial IM Q6HR PRN Agitation or Acute Anxiety Linagliptin 5 mg 11/13/22 09:00 11/15/22 08:50 Linagliptin 5 Mg Tablet PO 5 mg DAILY [facility] Administration Lisinopril 10 mg 11/13/22 09:00 11/15/22 09:13 Lisinopril 10 Mg Tab PO 10 mg DAILY [facility] Administration Lorazepam 1 mg 11/12/22 14:51 Lorazepam 2 Mg/Ml Inj IM Q6HR PRN Agitation or Acute Anxiety Lorazepam 1 mg 11/14/22 08:44 Lorazepam 1 Mg Tab PO Q6HR PRN Anxiety Magnesium Hydroxide 2,400 mg 11/12/22 14:42 Magnesium Hydroxide 2,400 Mg/30 Ml Cup PO DAILY PRN Constipation Melatonin 10 mg 11/15/22 21:00 Melatonin 5 Mg Tablet PO [facility] Metoprolol Tartrate 25 mg 11/13/22 09:00 11/15/22 09:11 Metoprolol Tartrate 25 Mg Tab PO Not Given DAILY [facility] Nicotine 1 patch 11/13/22 09:00 11/15/22 08:47 Nicotine 21mg/24hr Patch TRANSDERM 1 patch DAILY [facility] Administration Nifedipine 30 mg 11/13/22 09:00 11/15/22 09:11 Nifedipine Xl 30 Mg Tab.Er.24 PO Not Given DAILY [facility] Non-Formulary Medication 70 mg 11/15/22 06:30 11/15/22 09:10 Alendronate Sodium [Alendronate Sodium] PO Not Given MO [facility] Non-Formulary Medication 80 mg 11/13/22 09:00 11/15/22 09:11 Atomoxetine Hcl [Strattera] PO Not Given DAILY [facility] 11/12/22 12:25 11/12/22 12:25
[2022-11-15 16:18] LABS: T4, Free (Free Thyroxine) 1.59 ng/dL (0.80-1.80)
[2022-11-15 17:43] LABS: Glucose,Whole Blood 189 mg/dL (70-110)
[2022-11-15 19:51] LABS: Glucose,Whole Blood 119 mg/dL (70-110)
[2022-11-15] MEDS: ATORVASTATIN 80 MG TAB PO SCH (20:40)
[2022-11-15] MEDS ORDERED: MELATONIN 5 MG TABLET PO SCH (21:00)
[2022-11-15] MEDS ORDERED: diphenhydrAMINE 25 MG CAP PO SCH (21:00)
[2022-11-16 07:03] VITALS: RESP 18; TEMP 98.5
[2022-11-16 07:43] LABS: Glucose,Whole Blood 131 mg/dL (70-110)
[2022-11-16] MEDS: NICOTINE 21MG/24HR PATCH TRANSDERM SCH (08:44)
[2022-11-16] MEDS: ARIPiprazole 5 MG TAB PO SCH (08:45)
[2022-11-16] MEDS: cilostazoL 100 MG TAB PO SCH (08:45)
[2022-11-16] MEDS: METOPROLOL TARTRATE 25 MG TAB PO SCH (08:45)
[2022-11-16] MEDS: lisinopriL 10 MG TAB PO SCH (08:45)
[2022-11-16] MEDS: CALCIUM CARB-VIT D 500 MG-5 MCG TAB PO SCH (08:45)
[2022-11-16] MEDS: NIFEdipine XL 30 MG TAB.ER.24 PO SCH (08:45)
[2022-11-16] MEDS: DIVALPROEX 250 MG TABLET.DR PO SCH (08:45)
[2022-11-16] MEDS: LINAGLIPTIN 5 MG TABLET PO SCH (08:46)
[2022-11-16] MEDS: NON FORMULARY DRUG (Atomoxetine Hcl [Strattera] 80 MG Capsule) PO SCH (08:46)
[2022-11-16 08:48] VITALS: BP 137/63; PULSE 47
--- NOTE | 2022-11-16 11:39 | P.DS ---
Providers Date of admission: 11/12/22 14:38 Expected date of discharge: 11/16/22 Attending physician: Ronnie Cleveland MD Consults: 11/13/22 07:14 Consult Physician Routine Consulting Provider: Nikki Hernández Consult Reason/Comments: H&P for mental health admission Do you want consulting provider notified?: Yes 11/14/22 12:29 Consult Physician Routine Consulting Provider: Donato Montez Consult Reason/Comments: H and P Do you want consulting provider notified?: Yes Primary care physician: Lucio Grimm - Discharge Diagnosis(es) (1) Bipolar disorder, curr episode manic w/o psychotic features, moderate Current Visit: Yes Status: Acute Priority: High (2) Intellectual disability Current Visit: Yes Status: Acute Priority: Medium (3) Cannabis use disorder Current Visit: Yes Status: Acute Priority: Medium (4) Nicotine dependence Current Visit: Yes Status: Acute Priority: Low Hospital Course: Admission HPI: Admission note was completed by Chelsea " Patient is a , employed, 62-year-old female who is presenting with nasreen. Patient presented to the ED accompanied by her [facility] patient case coordinator after reportedly being found on the street acting depressed. It is reported the patient was discontinued off of lithium because of concern for potential kidney issues and started on Zyprexa on 10/26/22 but patient reports noncompliance with Zyprexa. Patient was admitted in an on a voluntary basis into the psychiatric unit. Patient is seen at [facility] by NELLY Sauer. Although there is no documented history suggestive of kidney failure, patient was quite concerned about this and therefore she was taken off of lithium on 10/26/22. She states that she has not been taking Zyprexa because she read about it and was concerned about the possibility of diabetic coma from Zyprexa. She states that she has been experiencing significant "mood swings" and depression recently. She describes in vivid detail discovering her son having attempted suicide 3 months ago. She says that this has been replaying in her mind and she is very worried about him. Patient has poor concentration and displays inflated self-esteem on presentation. She reports having slept 1 hour for the past 5 days and is irritable on approach. She says her mood has been "bad" and has been significantly worried about her son. She is quite tangential during the i nterview and discusses her concerns about her son's mental health in detail rather than answering questions about her own. However, patient is able to be verbally redirected after some time. She displays psychomotor agitation and stands up often during the interview to express herself loudly. Selina expresses paranoia at times that the medical system is failing her son and asks that this provider help her sons be placed on SSI, but it appears that this might be due to an innate misunderstanding of the medical system. On risk assessment, patient denies active suicidal ideation, intent or plan. However, because of her concerns over her son's health, patient endorses passive suicidal ideation. Patient denies homicidal ideation. She denies auditory and visual hallucinations, as asked and assessed. She denies access to guns or weapons." Hospital course: Upon admission to the unit patient was directable and agreeable to commence treatment and signed adult voluntary form. Patient got along well with other patients on the unit and followed unit protocol. Patient signed AMA on 11/14 as she wanted to go home. Patient was compliant with the medications and denied any side effects throughout hospital course. Patient was started on Depakote 250 mg twice a day for mood stabilization, Benadryl 25 mg daily at bedtime for insomnia, melatonin 10 mg daily at bedtime for sleep, Abilify 5 mg daily for mood stabilization.. Patient spoke of her stressors and engaged in therapy both group and individual. Patient was also seen by medical team for history and physical exam. patient was seen by inside solar sales consultant for bradycardia and had 2 ekgs completed. recommendations that patients bradycardia was innappropriately secondary to bigeminy and to continue with patients home cardiac meds including metoptrolol. Patient was denying any CP, syncope or dizziness, SOB and was advised that if she does experience this to come to the ER for evaluation and also to follow up with cardiology upon discharge, patient verbally understood and agreed. Throughout the course of the hospitalization patient gradually improved with regards to mood, anxiety, sleep and returned back to their baseline level of functioning. On the day of discharge patient denied any suicidal or homicidal ideations intent or plan denied any auditory or visual hallucinations. Patient endorsed wanting to live for her health and future. The patient denied any access to guns or weapons. Patient denied any paranoia and did not endorse any delusions. Patient does have a significant history of substance abuse and was counseled on abstaining from all substances including alcohol and marijuana. Patient elected to do outpatient substance use treatment program through [facility]. Patient was also counseled on the medications and need for regular compliance and was encouraged to follow-up with their outpatient appointment for mental health and also for primary care. Prior to discharge a family meeting will be arranged by manager social work to answer any questions and ensure safety upon discharge. Mental status exam: General Appearance: Patient appears to be short in stature stated age is alert, pleasant, and cooperative. Patient is in no acute distress and has improved hygiene and grooming Behavior: Patient is calmly seated without any agitated behavior. Speech: Patient's speech is fluent and nonpressured. Mood/Affect: Patient reports their mood is "better", affect is congruent and euthymic. Suicidality/Homicidality: Patient denies having any suicidal or homicidal ideation intent or plan. Perceptions: Patient denies any auditory or visual hallucinations. Though content/process: There is no evidence of any delusional thought content and thought process is linear and goal-directed. more future oriented. concrete. Memory and concentration: AOX3, grossly intact for the purposes of this session. Can spell "WORLD" backwards correctly. Judgment and insight: chronically limited, however has improved with guarded prognosis Impression: Bipolar disorder, current episode nasreen, moderate without psychotic features Cannabis use disorder Intellectual disability Nicotine dependence Plan: -Continue with discharge today as patient has improved and stabilized psychiatrically and is not currently an imminent threat to herself and/or others. Patient will remain at chronically elevated risk for harm to self and/or others due to her mental illness and substance abuse. -Continue medications: Abilify by mouth 5 mg daily for mood stabilization, Depakote 250 mg by mouth twice a day for mood stabilization, Benadryl 25 mg daily at bedtime for insomnia, melatonin 10 mg daily at bedtime for sleep. -Patient was counseled on the need for medication compliance and appropriate follow-up at mental health and also primary care for medical issues. Patient verbalized understanding and agreed. -Social work to help arrange for patients discharge today. Social work also to arrange for patients follow up appointments with [facility] for psychiatric care along with follow up with primary care provider. -Patient counseled on abstaining from recreational drugs and marijuana and alcohol. Was informed/educated on the adverse effects on their physical and mental health. Patient verbally agreed and understood. -Patient was instructed to return to the hospital or seek immediate medical care if their psychiatric or medical symptoms do worsen or reoccur. Allergies Allergy/AdvReac Type Severity Reaction Status Date / Time No Known Allergies Allergy Verified 11/12/22 10:52 Laboratory Results WBC 10.1 k/uL (3.8-10.6) 11/12/22 12:25 RBC 3.85 m/uL (3.80-5.40) 11/12/22 12:25 Hgb 12.3 gm/dL (11.4-16.0) 11/12/22 12:25 Hct 36.4 % (34.0-46.0) 11/12/22 12:25 MCV 94.6 fL (80.0-100.0) 11/12/22 12:25 MCH 32.0 pg (25.0-35.0) 11/12/22 12:25 MCHC 33.8 g/dL (31.0-37.0) 11/12/22 12:25 RDW 12.7 % (11.5-15.5) 11/12/22 12:25 Plt Count 258 k/uL (150-450) 11/12/22 12:25 MPV 10.4 11/12/22 12:25 Sodium 140 mmol/L (137-145) 11/12/22 12:25 Potassium 4.6 mmol/L (3.5-5.1) 11/12/22 12:25 Chloride 103 mmol/L (98-107) 11/12/22 12:25 Carbon Dioxide 28 mmol/L (22-30) 11/12/22 12:25 Anion Gap 9 mmol/L 11/12/22 12:25 BUN 15 mg/dL (7-17) 11/12/22 12:25 Creatinine 0.96 mg/dL (0.52-1.04) 11/12/22 12:25 Est GFR (CKD-EPI)AfAm 73 (>60 ml/min/1.73 sqM) 11/12/22 12:25 Est GFR (CKD-EPI)NonAf 64 (>60 ml/min/1.73 sqM) 11/12/22 12:25 Glucose 117 mg/dL (74-99) H 11/12/22 12:25 POC Glucose (mg/dL) 131 mg/dL (70-110) H 11/16/22 07:41 POC Glu Econometrics Professor ID Manny Senior 11/16/22 07:[address] Glu mg/dL 128 mg/dL 11/12/22 12:25 Hemoglobin A1c 6.1 % (<=6.0) H 11/12/22 12:25 Calcium 10.3 mg/dL (8.4-10.2) H 11/12/22 12:25 Total Bilirubin 0.5 mg/dL (0.2-1.3) 11/12/22 12:25 AST 41 U/L (14-36) H 11/12/22 12:25 ALT 30 U/L (4-34) 11/12/22 12:25 Alkaline Phosphatase 41 U/L (38-126) 11/12/22 12:25 Troponin I <0.012 ng/mL (0.000-0.034) 11/14/22 11:48 Total Protein 7.1 g/dL (6.3-8.2) 11/12/22 12:25 Albumin 4.4 g/dL (3.5-5.0) 11/12/22 12:25 Triglycerides 115.00 mg/dL (0.00-149.00) 11/13/22 06:42 Cholesterol 116.00 mg/dL (0.00-200.00) 11/13/22 06:42 LDL Cholesterol, Calc 41.0 mg/dL (0.0-131.0) 11/13/22 06:42 VLDL Cholesterol, Calc 23.00 mg/dL (5.00-40.00) 11/13/22 06:42 HDL Cholesterol 52.00 mg/dL (40.00-60.00) 11/13/22 06:42 Cholesterol/HDL Ratio 2.23 Ratio 11/13/22 06:42 TSH 0.270 mIU/L (0.465-4.680) L 11/13/22 06:42 Free T4 1.59 ng/dL (0.80-1.80) 11/13/22 06:42 Free T3 pg/mL 3.30 pg/mL (2.30-4.20) 11/13/22 06:42 Urine Color Yellow 11/12/22 11:20 Urine Appearance Clear (Clear) 11/12/22 11:20 Urine pH 7.0 (5.0-8.0) 11/12/22 11:20 Ur Specific [place] 1.012 (1.001-1.035) 11/12/22 11:20 Urine Protein Negative (Negative) 11/12/22 11:20 Urine Glucose (UA) Negative (Negative) 11/12/22 11:20 Urine Ketones Negative (Negative) 11/12/22 11:20 Urine Blood Negative (Negative) 11/12/22 11:20 Urine Nitrite Positive (Negative) H 11/12/22 11:20 Urine Bilirubin Negative (Negative) 11/12/22 11:20 Urine Urobilinogen <2.0 mg/dL (<2.0) 11/12/22 11:20 Ur Leukocyte Esterase Negative (Negative) 11/12/22 11:20 Urine RBC 1 /hpf (0-5) 11/12/22 11:20 Urine WBC 2 /hpf (0-5) 11/12/22 11:20 Ur Squamous Epith Cells 2 /hpf (0-4) 11/12/22 11:20 Urine Bacteria Many /hpf (None) H 11/12/22 11:20 Urine Mucus Rare /hpf (None) H 11/12/22 11:20 [place] <0.2 mmol/L 11/13/22 06:42 Coronavirus (PCR) Not Detected (Not Detectd) 11/12/22 10:58 Vital Signs Temp 98.5 F 11/16/22 03:00 Pulse 47 L 11/16/22 08:47 Resp 18 11/16/22 03:00 BP 137/63 11/16/22 08:47 Pulse Ox 97 11/16/22 03:00 FiO2 Patient Condition at Discharge: Stable Plan - Discharge Summary Discharge Rx Participant: Yes New Discharge Prescriptions: New diphenhydrAMINE [Benadryl] 25 mg PO HS 30 Days #30 cap Divalproex [Depakote] 250 mg PO BID 30 Days #60 tab Metoprolol Tartrate [Lopressor] 25 mg PO DAILY 14 Days #14 tablet ARIPiprazole [Abilify] 5 mg PO DAILY 30 Days #30 tab Nicotine 21Mg/24Hr Patch [Habitrol] 1 patch TRANSDERM DAILY 14 Days #14 patch Melatonin 10 mg PO HS 30 Days #60 tab Continue Alendronate Sodium 70 mg PO MO Albuterol Sulfate [Proair Hfa] 2 puff INHALATION RT-Q6H PRN PRN Reason: Shortness Of Breath Atorvastatin [Lipitor] 80 mg PO HS cilostazoL [Pletal] 100 mg PO BID lisinopriL [Prinivil] 10 mg PO DAILY Calcium Carbonate/Vitamin D3 [Calcium 600-Vit D3 10 mcg (400 Iu)] 1 tab PO TID NIFEdipine XL [Procardia XL] 30 mg PO DAILY sitaGLIPtin [Januvia] 100 mg PO DAILY Discontinued Atomoxetine HCl [Strattera] 80 mg PO DAILY Mirtazapine 15 mg PO HS FLUoxetine HCL [PROzac] 20 mg PO DAILY Metoprolol Tartrate [Lopressor] 25 mg PO DAILY OLANZapine [ZyPREXA] 5 mg PO HS Discharge Medication List Alendronate Sodium 70 mg PO MO 01/01/16 [History] Albuterol Sulfate [Proair Hfa] 2 puff INHALATION RT-Q6H PRN 10/15/16 [History] Atorvastatin [Lipitor] 80 mg PO HS 12/10/20 [History] cilostazoL [Pletal] 100 mg PO BID 12/10/20 [History] lisinopriL [Prinivil] 10 mg PO DAILY 12/10/20 [History] Calcium Carbonate/Vitamin D3 [Calcium 600-Vit D3 10 mcg (400 Iu)] 1 tab PO TID 11/12/22 [History] NIFEdipine XL [Procardia XL] 30 mg PO DAILY 11/12/22 [History] sitaGLIPtin [Januvia] 100 mg PO DAILY 11/12/22 [History] ARIPiprazole [Abilify] 5 mg PO DAILY 30 Days #30 tab 11/16/22 [Rx] Divalproex [Depakote] 250 mg PO BID 30 Days #60 tab 11/16/22 [Rx] Melatonin 10 mg PO HS 30 Days #60 tab 11/16/22 [Rx] Metoprolol Tartrate [Lopressor] 25 mg PO DAILY 14 Days #14 tablet 11/16/22 [Rx] Nicotine 21Mg/24Hr Patch [Habitrol] 1 patch TRANSDERM DAILY 14 Days #14 patch 11/16/22 [Rx] diphenhydrAMINE [Benadryl] 25 mg PO HS 30 Days #30 cap 11/16/22 [Rx] Follow up Appointment(s)/Referral(s): Dean Benito MD [STAFF PHYSICIAN] - 1 Week Lucio Grimm DO [Primary Care Provider] - 1-2 days Patient Instructions/Handouts: Depression (DC), Anxiety (GEN) Activity/Diet/Wound Care/Special Instructions: Avoid the use of street drugs and alcohol. Take all medications as prescribed. When you are in need of refills on your medications, please contact your medical provider and/or outpatient psychiatrist to have this done. Please go to scheduled outpatient appointments for aftercare treatment. If symptoms return or become worse, call the crisis line at and/or go to the nearest emergency room for evaluation. Discharge Disposition: HOME SELF-CARE Plan of Treatment: Per Cardiology continue home meds and follow up with Dr. Benito in one week.
--- NOTE | 2022-11-16 12:33 | P.PN ---
Subjective HISTORY OF PRESENT ILLNESS: This is a 62-year-old female with a past medical history significant for hypertension, bipolar disorder, nicotine dependence, and cannabis use. Patient follows in the office with Dr. Benito. We have been asked to see the patient in consultation for bradycardia. Patient examined in the mental health unit. Patient currently denies chest pain or pressure. She currently denies shortness of breath. The patient does report she gets occasional chest pain on the left side of her chest. Patient also reports she occasionally feels palpitations. Patient was initially thought to be bradycardic and her metoprolol and Procardia were held. EKG was obtained revealing bigeminy. Patient's blood pressure currently stable. * EKG reveals sinus mechanism with bigeminy * Laboratory data: WBC 10.1. Hemoglobin 12.3. Platelet count 258. Sodium 140. Potassium 4.6. BUN 15. Creatinine 0.96. Troponin negative 2. * Current home cardiac medications include Lipitor 80 mg at night, Pletal 100 mg twice a day, lisinopril 10 mg daily, metoprolol tartrate 25 mg daily, Procardia XL 30 mg daily * Most recent echocardiogram obtained in May 2022 at the cardiology office revealed ejection fraction 50-55%, moderate mitral regurgitation which is highly eccentric, mild tricuspid regurgitation, normal pulmonary artery systolic pressure * Patient underwent Lexiscan stress test in the office in August 2019 revealing small sized mid anterior wall fixed defect with normal contractility likely soft tissue attenuation. No evidence of stress-induced ischemia. 11/16/2022 Patient examined today in the mental health unit. Patient denies chest pain or pressure. She denies shortness of breath. She continues to report occasional palpitations. She states that she is feeling better in terms of her mental health and is hoping to be discharged home today. PHYSICAL EXAM: VITAL SIGNS: Reviewed. GENERAL: Well-developed in no acute distress. HEENT: Head is normocephalic. Pupils are equal, round. Sclerae anicteric. Mucous membranes of the mouth are moist. Neck supple. No JVD or thyromegaly LUNGS: Respirations even and unlabored. Lungs essentially clear to auscultation bilaterally. HEART: Regular rate and rhythm. S1 and S2 heard. ABDOMEN: Soft. Nondistended. Nontender. EXTREMITIES: Normal range of motion. No clubbing or cyanosis. Peripheral pulses intact. No lower extremity edema NEUROLOGIC: Awake and alert. Oriented x 3. ASSESSMENT: Bigeminy History of palpitations History of hypertension Bipolar disorder Marijuana use disorder Nicotine dependence PLAN: Patients heart rate appearing bradycardic inappropriately secondary to bigeminy And she knew current cardiac medications Increase metoprolol to 50 mg twice a day Patient may be discharged home today from a cardiac standpoint and follow up on an outpatient basis with Dr. Benito Nurse practitioner note has been reviewed by physician. Signing provider agrees with the documented findings, assessment, and plan of care. Dr. Miner's Addendum It is noted that patient's heart rate is in the range of 40s to 50s as made by the automatic machine. On manual palpation heart rate is ranging from 70-80 beats a minute. Patient has frequent monomorphic premature ventricular contractions often presenting itself in a bigeminal fashion. Patient does report having on and off symptoms of palpitations which does correspond to her PVCs. We have resumed her metoprolol and have increased her dose to 50 mg twice a day. She is on Procardia XL for blood pressure control. If she continues to have palpitations and PVCs, it would be a good idea to discontinue Procardia and metoprolol and instead start Cardizem. She needs outpatient follow-up with Dr. Benito. I have personally seen and examined the patient. I have personally performed all the components of medical care documented above including formulating the assessment and plan. I have personally reviewed the relavant labs, imaging and o ther diagnostics. I have discussed this in detail with my MANAGER DIGITAL who has helped me with this documentation. I have carefully reviewed this document before finalizing. Total time spent reviewing medical chart, examining patient, counselling patient and documentation [default value] mins Thank you for letting cardiology team participating in this patient's care. Dr. Jignesh Miner MD Cardiovascular Disease Please CC this document Dr. Benito [employer] Objective - Vital Signs Vital signs: Vital Signs Temp 98.5 F 11/16/22 03:00 Pulse 47 L 11/16/22 08:47 Resp 18 11/16/22 03:00 BP 137/63 11/16/22 08:47 Pulse Ox 97 11/16/22 03:00 FiO2 - Labs CBC & Chem 7: 11/12/22 12:25 07/14/23 12:25 Labs: Abnormal Lab Results - Last 24 Hours (Table) 11/15/22 11/15/22 11/15/22 Range/Units 12:37 17:41 19:50 POC Glucose (mg/dL) 122 H 189 H 119 H (70-110) mg/dL 11/16/22 Range/Units 07:41 POC Glucose (mg/dL) 131 H (70-110) mg/dL
[2022-11-16] MEDS ORDERED: METOPROLOL TARTRATE 25 MG TAB PO SCH (21:00)
[2022-11-16] MEDS ORDERED: METOPROLOL TARTRATE 50 MG TAB PO SCH (21:00)
== END 2022-11-16 12:45 | disposition home or self-care (01) | DRG 885 ==
LOC: EC 09:52 → 3MHU 14:38
PROVIDERS: ADMIT Psychiatry & Neurology Psychiatry; ATTEND Psychiatry & Neurology Psychiatry
DX: F31.12 Bipolar disorder, current episode manic without psychotic features, moderate (principal); R45.851 Suicidal ideations; F70 Mild intellectual disabilities; R00.1 Bradycardia, unspecified; I08.1 Rheumatic disorders of both mitral and tricuspid valves; F12.10 Cannabis abuse, uncomplicated; G43.909 Migraine, unspecified, not intractable, without status migrainosus; J43.9 Emphysema, unspecified; J42 Unspecified chronic bronchitis; E78.5 Hyperlipidemia, unspecified; G47.00 Insomnia, unspecified; I10 Essential (primary) hypertension; M19.90 Unspecified osteoarthritis, unspecified site; Z79.02 Long term (current) use of antithrombotics/antiplatelets; Z76.5 Malingerer [conscious simulation]; Z79.84 Long term (current) use of oral hypoglycemic drugs; Z79.899 Other long term (current) drug therapy; Z66 Do not resuscitate; Z91.199 Patient's noncompliance with other medical treatment and regimen due to unspecified reason; Z20.822 Contact with and (suspected) exposure to COVID-19; Z98.51 Tubal ligation status; Z71.51 Drug abuse counseling and surveillance of drug abuser; Z71.6 Tobacco abuse counseling
CPT/HCPCS: 36415; 80053; 80061; 80178; 81001; 82075; 83036; 84439; 84443; 84481; 84484; 85027; 87635; 93005; 99285

== ENCOUNTER → 2023-09-09 | Outpatient (CLI) | payer MEDICARE ==
--- NOTE | 2023-09-09 10:52 | XR ---
EXAMINATION TYPE: XR shoulder complete RT DATE OF EXAM: 09/09/2023 10:40 AM CLINICAL INDICATION:Female, 63 years old with history of PAIN IN RIGHT SHOULDER; H COMPARISON: None TECHNIQUE: XR shoulder complete RT; examined in AP, internally rotated and scapular Y projections. FINDINGS: No evidence of acute osseous pathology, joint dislocation, or soft tissue swelling. The remaining po rtions of the visualized chest are unremarkable. Mild degeneration changes of the acromion and dista l clavicle. IMPRESSION: 1. No acute osseous pathology. 2. Mild shoulder osteoarthrosis.
== END | disposition home or self-care (01) ==
LOC: RADXRMAIN 10:24
PROVIDERS: ATTEND Family Medicine
DX: M19.011 Primary osteoarthritis, right shoulder (principal)

== ENCOUNTER → 2024-02-10 | Outpatient (CLI) | payer MEDICARE, OTHER ==
--- NOTE | 2024-02-13 09:02 | MM ---
Reason for Exam: Screening (asymptomatic). Last mammogram was performed 2 year(s) and 0 month(s) ago. Patient History: Menarche at age 12. First Full-Term at age 22. Right ovary removed at age 16. Postmenopausal. Risk Values: [place] 5 year model risk: 1.4%. NCI Lifetime model risk: 5.8%. Prior Study Comparison: 07/03/2018 Bilateral Screening Mammogram, [facility]. 02/08/2022 Bilateral MG 3D screening mammo w/cad, [facility]. 02/17/2022 Left MG 3D work up w/cad , [facility]. Tissue Density: The breasts are heterogeneously dense, which may obscure small masses. Findings: Analyzed By CAD. Right breast: There is no suspicious group of microcalcifications or new suspicious mass. Left breast: There is no suspicious group of microcalcifications or new suspicious mass. Overall Assessment: Negative, BI-RAD 1 Management: Screening Mammogram of both breasts in [address] [facility] will attempt to contact patient to return for supplemental views and ultrasound if indicated. Patient should continue monthly self-breast exams. A clinical breast exam by your physician is recommended on an annual basis. This exam should not preclude additional follow-up of suspicious palpable abnormalities. Note on [place] scores and lifetime risk: 1. A [place] score greater than 3% is considered moderate risk. If this is the case, consider specialist referral to assess eligibility for a risk reducing agent. 2. If overall lifetime risk for the development of breast cancer is 20% or higher, the patient may qualify for future screening with alternating mammogram and breast MRI. [facility], , 02/13/2024 8:59 AM. Electronically signed and approved by: Pedrito Dewey DO
== END | disposition home or self-care (01) ==
LOC: RADMAMWWP 12:15
PROVIDERS: ATTEND Family Medicine
DX: M81.0 Age-related osteoporosis without current pathological fracture
CPT/HCPCS: 77063; 77067; 77080

== ENCOUNTER 2024-04-12 08:55 | Day surgery (SDC) | payer MEDICARE, OTHER ==
[2024-04-11 09:55] VITALS: BMI 22.4
--- NOTE | 2024-04-12 07:55 | P.GSHP ---
History of Present Illness H&P Date: 04/12/24 CHIEF COMPLAINT: Colon screen HISTORY OF PRESENT ILLNESS: The patient is a 64-year-old female who presents for colon screen. Lower endoscopy was offered for further evaluation and management. PAST MEDICAL HISTORY: Please see list. PAST SURGICAL HISTORY: Please see list. MEDICATIONS: Please see list. ALLERGIES: Please see list. SOCIAL HISTORY: No illicit drug use FAMILY HISTORY: No reports of Crohn disease or ulcerative colitis. REVIEW OF ORGAN SYSTEMS: CONSTITUTIONAL: No reports of fevers or chills. PHYSICAL EXAM: VITAL SIGNS: Stable GENERAL: Well-developed pleasant in no acute distress. HEENT: No scleral icterus. Extraocular movements grossly intact. Moist buccal mucosa. NECK: Supple without lymphadenopathy. CHEST: Unlabored respirations. Equal bilateral excursions. CARDIOVASCULAR: Regular rate and rhythm. Distal 2+ pulses. ABDOMEN: Soft, nontender, nondistended. MUSCULOSKELETAL: No clubbing, cyanosis, or edema. ASSESSMENT: 1. Colon screen. PLAN: 1. Recommend proceeding with a lower endoscopy Past Medical History Past Medical History: Chest Pain / Angina, COPD, Diabetes Mellitus, Eye Disorder, Hyperlipidemia, Hypertension, Osteoarthritis (OA) Additional Past Medical History / Comment(s): migraines, emphysema, chronic bronchitis, can't see small print , learning disability, History of Any Multi-Drug Resistant Organisms: None Reported Past Surgical History: Appendectomy, Section, Tonsillectomy, Tubal Ligation Additional Past Surgical History / Comment(s): colonoscopy Past Anesthesia/Blood Transfusion Reactions: No Reported Reaction Additional Past Anesthesia/Blood Transfusion Reaction / Comment(s): no blood transfusion Smoking Status: Current every day smoker - Past Family History Father Family Medical History: Cancer Medications and Allergies Home Medications Medication Instructions Recorded Confirmed Type Albuterol Sulfate [Proair Hfa] 2 puff INHALATION RT-Q6H PRN 10/15/16 04/11/24 History Atorvastatin [Lipitor] 80 mg PO HS 12/10/20 04/11/24 History cilostazoL [Pletal] 100 mg PO BID 12/10/20 04/11/24 History lisinopriL [Prinivil] 10 mg PO DAILY 12/10/20 04/11/24 History sitaGLIPtin [Januvia] 100 mg PO DAILY 11/12/22 04/11/24 History Divalproex [Depakote] 250 mg PO BID 30 Days #60 tab 11/16/22 04/11/24 Rx Atomoxetine HCl 40 mg PO DAILY 04/11/24 04/11/24 History Metoprolol Tartrate [Lopressor] 25 mg PO DAILY 04/11/24 04/11/24 History Mirabegron [Myrbetriq] 50 mg PO DAILY 04/11/24 04/11/24 History traZODone HCL 100 mg PO HS 04/11/24 04/11/24 History Allergies Allergy/AdvReac Type Severity Reaction Status Date / Time No Known Allergies Allergy Verified 04/11/24 09:49
[2024-04-12 09:28] VITALS: TEMP 98.8
[2024-04-12] MEDS: IV FLUID CONTINUATION 1,000 ML IV ONE (09:44)
[2024-04-12] MEDS: LACTATED RINGERS 1,000 ML IV SCH (09:44)
[2024-04-12 09:47] LABS: Glucose,Whole Blood 108 mg/dL (70-110)
[2024-04-12] MEDS ORDERED: PROPOFOL 10 MG/ML 20 ML VIAL IV ONE (10:04)
[2024-04-12 10:43] VITALS: RESP 14
[2024-04-12 11:06] VITALS: BP 130/74; PULSE 60
--- NOTE | 2024-04-12 11:50 | P.PCN ---
Date of Procedure: 04/12/24 Description of Procedure: PREOPERATIVE DIAGNOSIS: Colonoscopy screening. POSTOPERATIVE DIAGNOSIS: Colonoscopy screening. Diverticulosis, scattered. OPERATION: Colonoscopy to the cecum, ileocecal valve and appendiceal orifice. SURGEON: Keke Don MD. ANESTHESIA: MAC. INDICATIONS: The patient is a 64-year-old female who presents for first colonoscopy screening. Benefits and risks were described and informed consent was obtained. DESCRIPTION OF PROCEDURE: The patient had undergone GoLytely prep. The patient had been brought into the operating room and laid in the left lateral decubitus position. After adequate intravenous sedation, the rectum was examined with 2% lidocaine jelly. No ext ernal hemorrhoids were encountered. The rectal tone was within normal limits. No lesions were palpated in the rectal vault. An Olympus colonoscope was advanced until the cecum, ileocecal valve and appendiceal orifice were clearly viewed. The prep was good. Scattered diverticulosis was encountered. No colonic polyps were found. No evidence of focal colitis was found. Retroflexion of the scope demonstrated grade 1 internal hemorrhoids without active bleeding or inflammation. The colon was desufflated. The patient had tolerated the procedure well. Withdrawal time was over 6 minutes. FINDINGS: Aronchick preparation quality scale 2 (1-5) Internal hemorrhoids, grade 1 No external prolapsed hemorrhoids. No arteriovenous malformations. No adenomatous polyps. No focal colitis. RECOMMENDATIONS: Lower endoscopy in 5 years, 2028 Plan - Discharge Summary Discharge Rx Participant: No New Discharge Prescriptions: Continue Albuterol Sulfate [Proair Hfa] 2 puff INHALATION RT-Q6H PRN PRN Reason: Shortness Of Breath Atorvastatin [Lipitor] 80 mg PO HS cilostazoL [Pletal] 100 mg PO BID lisinopriL [Prinivil] 10 mg PO DAILY Divalproex [Depakote] 250 mg PO BID 30 Days #60 tab sitaGLIPtin [Januvia] 100 mg PO DAILY traZODone HCL 100 mg PO HS Metoprolol Tartrate [Lopressor] 25 mg PO DAILY Mirabegron [Myrbetriq] 50 mg PO DAILY Atomoxetine HCl 40 mg PO DAILY Discharge Medication List Albuterol Sulfate [Proair Hfa] 2 puff INHALATION RT-Q6H PRN 10/15/16 [History] Atorvastatin [Lipitor] 80 mg PO HS 12/10/20 [History] cilostazoL [Pletal] 100 mg PO BID 12/10/20 [History] lisinopriL [Prinivil] 10 mg PO DAILY 12/10/20 [History] sitaGLIPtin [Januvia] 100 mg PO DAILY 11/12/22 [History] Divalproex [Depakote] 250 mg PO BID 30 Days #60 tab 11/16/22 [Rx] Atomoxetine HCl 40 mg PO DAILY 04/11/24 [History] Metoprolol Tartrate [Lopressor] 25 mg PO DAILY 04/11/24 [History] Mirabegron [Myrbetriq] 50 mg PO DAILY 04/11/24 [History] traZODone HCL 100 mg PO HS 04/11/24 [History] Follow up Appointment(s)/Referral(s): Keke Don MD [STAFF PHYSICIAN] - As Needed Patient Instructions/Handouts: *Surgery [facility] - (Anesthesia) Discharge Instructions Outpatient Surgery, Colonoscopy (DC) Activity/Diet/Wound Care/Special Instructions: May resume blood thinners. Repeat colonoscopy 5 years, 2028 Discharge Disposition: HOME SELF-CARE
== END 2024-04-12 12:10 | disposition home or self-care (01) ==
LOC: ORWHC2ENDO 08:55
PROVIDERS: ATTEND Surgery Plastic and Reconstructive Surgery
DX: Z12.11 Encounter for screening for malignant neoplasm of colon (principal); K57.30 Diverticulosis of large intestine without perforation or abscess without bleeding; K64.0 First degree hemorrhoids; I10 Essential (primary) hypertension; E11.9 Type 2 diabetes mellitus without complications; E78.5 Hyperlipidemia, unspecified; I20.9 Angina pectoris, unspecified; I49.9 Cardiac arrhythmia, unspecified; F41.9 Anxiety disorder, unspecified; F31.9 Bipolar disorder, unspecified; G43.909 Migraine, unspecified, not intractable, without status migrainosus; F81.9 Developmental disorder of scholastic skills, unspecified; M19.90 Unspecified osteoarthritis, unspecified site; F17.200 Nicotine dependence, unspecified, uncomplicated; Z79.84 Long term (current) use of oral hypoglycemic drugs; Z79.02 Long term (current) use of antithrombotics/antiplatelets; Z79.899 Other long term (current) drug therapy
CPT/HCPCS: J2704; G0121